=== PATIENT | male | born 1980 | race Caucasian/White ===

== ENCOUNTER 2017-12-15 09:30 | Emergency (ER) | payer SELFPAY ==
[~2017-12-15] VITALS: Ht 185.4 cm; Wt 83.1 kg
[~2017-12-15 09:30] MED LIST: ALBU1AER INH; ALBU8I INH; CITA20 PO; CLON.2 PO; IBUP800 PO; LEVA500T PO; METH10TA PO; METH40TA PO; SERO100T PO; SERO300T PO
[2017-12-15 09:39] VITALS: BP 179/86; PULSE 80; RESP 16; TEMP 98.7; O2SAT 97
[2017-12-15 09:45] VITALS: BP 179/86; PULSE 86; RESP 18; TEMP 98.7; O2SAT 99
[2017-12-15] MEDS ORDERED: SODIUM CHLORIDE 0.9% FLUSH 10 ML FLUSH IVF PRN (09:45)
--- NOTE | 2017-12-15 09:48 | PD ---
HPI Chief Complaint: Allergic/Adverse Reaction Time Seen by Provider: 09:41 Travel History International Travel<30 days: No Contact w/Intl Traveler<30days: No Traveled to known affect area: No History of Present Illness HPI Patient was at [facility] detox facility where he was being converted from methadone to Suboxone. The patient was given a test dose of 4 mg and then follow that with 8 milligrams of Subutex after which within 20 minutes the patient started to clench his teeth got confused started thrashing about. [facility] staff called 911 and got patient transferred. ems gave benzo during transfer due to fear of seizure activity, because of high agitation from patient. No known drug allergy Past medical history significant for withdrawal seizures, COPD, bipolar, smokes 1 pack a day cigarettes daily, inguinal hernia repair, PFSH Past Medical History Hx Anticoagulant Therapy: No Asthma: No Blood Disorders: No Anxiety: Yes Depression: Yes Heart Rhythm Problems: Yes Cancer: No Cardiovascular Problems: Yes High Cholesterol: No Chest Pain: No Congestive Heart Failure: No COPD: Yes Cerebrovascular Accident: Yes Diabetes: No Diminished Hearing: No Endocrine: No Genitourinary: No Hypertension: Yes Immune Disorder: Yes Inguinal Hernia: Yes (REPAIRED) Implanted Vascular Access Dvce: Yes Musculoskeletal: No Neurologic: Yes (SEIZURES) Psychiatric: Yes (BIPOLAR; ANXIETY; DEPRESSION) Reproductive: No Respiratory: Yes Immunizations Current: No Seizures: Yes (withdrawal) Sleep Apnea: No Past Surgical History Body Medical Devices: R ANKLE/LEG OPAL Other Surgery: Yes (HERNIA REPAIR; BACK SX (FELL 3 STORIES); R ANKLE SX) Social History Alcohol Use: No Tobacco Use: Yes (1 PPD) Substance Use: No Allergies-Medications (Allergen,Severity, Reaction): Coded Allergies: No Known Allergies (Verified Allergy, Unknown, 12/15/17) Reported Meds & Prescriptions Reported Meds & Active Scripts Active Active Prescriptions or Reported Medications Unobtainable Review of Systems ROS Limitations: Altered Mental Status (Patient is having intermittent changes of mentation secondary to the starting of Suboxone) Physical Exam Narrative GENERAL: SKIN: Warm and dry. HEAD: Atraumatic. Normocephalic. EYES: Pupils equal and round. No scleral icterus. No injection or drainage. ENT: No nasal bleeding or discharge. Mucous membranes pink and moist. NECK: Trachea midline. No JVD. CARDIOVASCULAR: Regular rate and rhythm. RESPIRATORY: No accessory muscle use. Clear to auscultation. Breath sounds equal bilaterally. GASTROINTESTINAL: Abdomen soft, non-tender, nondistended. MUSCULOSKELETAL: Extremities without clubbing, cyanosis, or edema. No obvious deformities. NEUROLOGICAL: Awake and alert. No obvious cranial nerve deficits. Motor grossly within normal limits. Five out of 5 muscle strength in the arms and legs. Normal speech. PSYCHIATRIC: Appropriate mood and affect; insight and judgment normal. Data Data Last Documented VS Orders Orders Complete Blood Count With Diff (12/15/17 09:41) Comprehensive Metabolic Panel (12/15/17 09:41) Urinalysis - C+S If Indicated (12/15/17 09:41) Iv Access Insert/Monitor (12/15/17:41) Ecg Monitoring (12/15/17:41) Oximetry (12/15/17 09:41) Sodium Chloride 0.9% Flush (Ns Flush) (12/15/17 09:45) Drug Screen, Random Urine (12/15/17 09:41) Alcohol (Ethanol) (12/15/17 09:41) Salicylates (Aspirin) (12/15/17 09:41) Tylenol (Acetaminophen) (12/15/17 09:41) Creatine Kinase (Cpk) (12/15/17 09:41) Clonidine (Catapres) (12/15/17 10:00) Clonidine (Catapres) (12/15/17 13:00) Ed Discharge Order (12/15/17 13:13) Labs Laboratory Tests Test 12/15/17 09:54 White Blood Count 8.4 TH/MM3 Red Blood Count 4.69 MIL/MM3 Hemoglobin 12.9 GM/DL Hematocrit 38.2 % Mean Corpuscular Volume 81.4 FL Mean Corpuscular Hemoglobin 27.4 PG Mean Corpuscular Hemoglobin Concent 33.6 % Red Cell Distribution Width 15.4 % Platelet Count 233 TH/MM3 Mean Platelet Volume 7.6 FL Neutrophils (%) (Auto) 74.5 % Lymphocytes (%) (Auto) 18.0 % Monocytes (%) (Auto) 5.6 % Eosinophils (%) (Auto) 0.9 % Basophils (%) (Auto) 1.0 % Neutrophils # (Auto) 6.3 TH/MM3 Lymphocytes # (Auto) 1.5 TH/MM3 Monocytes # (Auto) 0.5 TH/MM3 Eosinophils # (Auto) 0.1 TH/MM3 Basophils # (Auto) 0.1 TH/MM3 CBC Comment DIFF FINAL Differential Comment Urine Color LIGHT-YELLOW Urine Turbidity CLEAR Urine pH 8.0 Urine Specific [place] 1.013 Urine Protein NEG mg/dL Urine Glucose (UA) NEG mg/dL Urine Ketones NEG mg/dL Urine Occult Blood NEG Urine Nitrite NEG Urine Bilirubin NEG Urine Urobilinogen LESS THAN 2.0 MG/DL Urine Leukocyte Esterase NEG Urine RBC 3 /hpf Microscopic Urinalysis Comment CULT NOT INDICATED Blood Urea Nitrogen 16 MG/DL Creatinine 0.94 MG/DL Random Glucose 94 MG/DL Total Protein 7.4 GM/DL Albumin 3.1 GM/DL Calcium Level 9.1 MG/DL Alkaline Phosphatase 143 U/L Aspartate Amino Transf (AST/SGOT) 22 U/L Alanine Aminotransferase (ALT/SGPT) 25 U/L Total Bilirubin 0.2 MG/DL Sodium Level 140 MEQ/L Potassium Level 4.3 MEQ/L Chloride Level 106 MEQ/L Carbon Dioxide Level 25.7 MEQ/L Anion Gap 8 MEQ/L Estimat Glomerular Filtration Rate 90 ML/MIN Total Creatine Kinase 197 U/L Salicylates Level 3.3 MG/DL Urine Opiates Screen NEG Acetaminophen Level LESS THAN 2.0 MCG/ML Urine Barbiturates Screen NEG Urine Amphetamines Screen NEG Urine Benzodiazepines Screen POS Urine Cocaine Screen NEG Urine Cannabinoids Screen NEG Ethyl Alcohol Level LESS THAN 3 MG/DL MDM Medical Decision Making Medical Screen Exam Complete: Yes Emergency Medical Condition: Yes Medical Record Reviewed: Yes Differential Diagnosis Withdrawal versus pseudoseizures versus seizures versus spasms Narrative Course Patient CBC shows no leukocytosis, no anemia, normal platelet count, no left shift UA is negative for any UTI Tox screen is negative for alcohol opiates Tylenol salicylates is only positive for benzodiazepines which the patient was provided by EMS Electrolytes are all within normal limits Normal kidney liver functions Patient after 2 hours worth of observation has not had any seizure activity, he was twitching and was uncomfortable complaining of generalized pain and increase jitteriness which is secondary to his withdrawal from the switch between methadone and Suboxone. The patient was also noted to be hypertensive for which she has been receiving clonidine which is also part of his withdrawal syndrome. Patient is otherwise medically clear and can return to detox program Diagnosis Primary Impression: Medical clear Additional Impression: Opiate withdrawal Patient Instructions: General Instructions, Opioid Withdrawal (ED) Scripts Unable to Obtain Active Prescriptions or Reported Meds Disposition: 70 TRANSFER TO OTHER FACILITY (Patient will be transferred back to [facility] detox) Condition: Stable Landon De Leon MD Dec 15, 2017 09:48
[2017-12-15] MEDS ORDERED: cloNIDine HCL 0.1 MG TAB PO ONE (10:00)
[2017-12-15 10:11] LABS: AUTOMATED NEUTROPHIL # 6.3 TH/MM3 (1.8-7.7); BASOPHIL # 0.1 TH/MM3 (0-0.2); EOSINOPHIL # 0.1 TH/MM3 (0-0.4); EOSINOPHIL % 0.9 % (0.0-4.0); HEMATOCRIT 38.2 % (39.0-51.0); HEMOGLOBIN 12.9 GM/DL (13.0-17.0); LYMPHOCYTE # 1.5 TH/MM3 (1.0-4.8); MEAN CELL VOLUME 81.4 FL (80.0-100.0); MEAN CORPUSCULAR HEMOGLOBIN 27.4 PG (27.0-34.0); MEAN CORPUSCULAR HGB CONC 33.6 % (32.0-36.0); MEAN PLATELET VOLUME 7.6 FL (7.0-11.0); MONO % 5.6 % (0.0-8.0); MONOCYTE # 0.5 TH/MM3 (0-0.9); NEUT % 74.5 % (16.0-70.0); PLATELET COUNT 233 TH/MM3 (150-450); RED BLOOD COUNT 4.69 MIL/MM3 (4.50-5.90); RED CELL DISTRIBUTION WIDTH 15.4 % (11.6-17.2); WHITE BLOOD COUNT 8.4 TH/MM3 (4.0-11.0)
[2017-12-15 10:20] LABS: BILIRUBIN, URINE NEG (NEG); BLOOD, URINE NEG (NEG); GLUCOSE,URINE NEG (NEG); KETONE, URINE NEG (NEG); NITRITE,URINE NEG (NEG); URINE COLOR LIGHT-YELLOW (YELLW/STRAW); URINE LEUKOCYTE ESTERASE NEG (NEG)
[2017-12-15 10:31] LABS: ALBUMIN 3.1 GM/DL (3.4-5.0); ALT (GPT) 25 U/L (12-78); AST (GOT) 22 U/L (15-37); BICARBONATE 25.7 MEQ/L (21.0-32.0); BLOOD UREA NITROGEN 16 MG/DL (7-18); CALCIUM 9.1 MG/DL (8.5-10.1); CHLORIDE 106 MEQ/L (98-107); CREATININE 0.94 MG/DL (0.60-1.30); GLOMERULAR FILTRATION RATE 90 ML/MIN (>89); GLUCOSE,RANDOM 94 MG/DL (74-106); SODIUM (NA) 140 MEQ/L (136-145)
[2017-12-15 10:33] LABS: ALKALINE PHOSPHATASE 143 U/L (45-117); TOTAL BILIRUBIN ADULT 0.2 MG/DL (0.2-1.0); TOTAL PROTEIN 7.4 GM/DL (6.4-8.2)
[2017-12-15 10:34] LABS: ACETAMINOPHEN LESS THAN 2.0 MCG/ML (10.0-30.0)
[2017-12-15] MEDS ORDERED: hydrALAZINE HCL 20 MG/ML VIAL IV PUSH ONE (11:30)
[2017-12-15 12:59] VITALS: BP 131/69; PULSE 78; RESP 18; O2SAT 96
[2017-12-15] MEDS ORDERED: cloNIDine HCL 0.2 MG TAB PO ONE (13:00)
== END 2017-12-15 13:29 | disposition short-term general hospital (02) ==
LOC: NEPE 09:30
DX: F11.23 Opioid dependence with withdrawal (principal); I10 Essential (primary) hypertension; J44.9 Chronic obstructive pulmonary disease, unspecified; F31.9 Bipolar disorder, unspecified; F17.210 Nicotine dependence, cigarettes, uncomplicated; Z86.73 Personal history of transient ischemic attack (TIA), and cerebral infarction without residual deficits
CPT/HCPCS: 80053; 80307; 81001; 82550; 85025; 99283

== ENCOUNTER 2018-04-06 06:27 | Observation (INO) ==
[2018-04-06] MEDS ORDERED: Morphine Inj 4 MG/ML Vial IV.PUSH ONE ×2 (07:15→09:24)
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
--- NOTE | 2018-04-06 08:16 | XR ---
EXAM DATE: 04/06/2018 7:15 AM EDT AGE/SEX: 37 years / Male INDICATIONS: Pain in lower back, predominately on the left, from fall. CLINICAL DATA: This is the patient's initial encounter. Patient reports that signs and symptoms have been present for 1 day and indicates a pain score of 5/10. MEDICAL/SURGICAL HISTORY: . Degenerative disk disease. None. COMPARISON: No prior exams available for comparison. FINDINGS: 5 views of the lumbar spine demonstrate 5 nonrib-bearing lumbar vertebral bodies. No fracture or comp ression deformity is present. There is no anterolisthesis or retrolisthesis. Endplate osteophytes are visualized anteriorly at L3-L4. There is mild facet hypertrophy at L5-S1. Mild decreased disc height is present at L5-S1 as well. Mild sclerosis is present at the endplates anteriorly at all levels. Th e visualized pelvic bones demonstrate no acute finding. No soft tissue abnormality is identified. The re is questionable fusion of a portion of the left sacroiliac joint. CONCLUSION: 1. No acute lumbar spine abnormality is identified. 2. There are subtle changes identified which can be seen as early findings of ankylosing spondylitis . Suggest correlating with the clinical history and appropriate laboratory values. Electronically signed by: Mookie Xiao MD 04/06/2018 8:14 AM EDT
--- NOTE | 2018-04-06 08:18 | XR ---
EXAM DATE: 04/06/2018 7:15 AM EDT AGE/SEX: 37 years / Male INDICATIONS: Pain in distal right wrist from fall. CLINICAL DATA: This is the patient's initial encounter. Patient reports that signs and symptoms have been present for 1 day and indicates a pain score of 10/10. MEDICAL/SURGICAL HISTORY: None. None. COMPARISON: No prior exams available for comparison. FINDINGS: 3 views of the right wrist demonstrate a comminuted fracture of the distal radial metaphysis with fra cture line extension into the radiocarpal joint. There is a dorsal angulation of the distal fragment. There is a minimally displaced ulnar styloid fracture. Carpal bones appear intact. There is soft tis vicky swelling around the wrist. No radiopaque foreign body is identified. CONCLUSION: 1. Comminuted and dorsally angulated fracture of the distal right radial metaphysis. Fracture line e xtends into the radiocarpal joint. 2. Minimally displaced ulnar styloid fracture. Electronically signed by: Mookie Xiao MD 04/06/2018 8:16 AM EDT
--- NOTE | 2018-04-06 08:19 | XR ---
EXAM DATE: 04/06/2018 7:49 AM EDT AGE/SEX: 37 years / Male INDICATIONS: Cough. CLINICAL DATA: This is the patient's initial encounter. Patient reports that signs and symptoms have been present for 1 day and indicates a pain score of 0/10. MEDICAL/SURGICAL HISTORY: None. None. [place] [facility] [place] . FINDINGS: Portable AP view of the chest demonstrates a normal-sized cardiac silhouette. No effusion, consolidat ion, or pneumothorax is identified. The bones and soft tissues demonstrate no acute finding. CONCLUSION: No acute cardiopulmonary abnormality is identified. Electronically signed by: Mookie Xiao MD 04/06/2018 8:17 AM EDT
--- NOTE | 2018-04-06 08:31 | CT ---
EXAM DATE: 04/06/2018 7:30 AM EDT AGE/SEX: 37 years / Male INDICATIONS: Trauma, fall today. CLINICAL DATA: This is the patient's initial encounter. Patient reports that signs and symptoms have been present for 1 day and indicates a pain score of 6/10. MEDICAL/SURGICAL HISTORY: Hypertension. None. RADIATION DOSE: 56.35 CTDI (mGy) [place] [facility]. . TECHNIQUE: CT of the head without contrast. Using automated exposure control and adjustment of the mA and/or kV according to patient size, radiation dose was kept as low as reasonably achievable to ob tain optimal diagnostic quality images. DICOM format image data is available electronically for revi ew and comparison. FINDINGS: Cerebrum: The ventricles are normal. No midline shift, mass lesion, hemorrhage or acute infarction. No extraaxial fluid collections are seen. Posterior Fossa: The cerebellum and brainstem demonstrate no acute abnormality. The 4th ventricle is midline. The cerebellopontine angle is within normal limits. Extracranial: There is mild mucoperiosteal thickening within the ethmoid sinus. Skull: The calvaria is intact. No skull fracture. CONCLUSION: No acute abnormality is identified. . Electronically signed by: Mookie Xiao MD 04/06/2018 8:30 AM EDT
--- NOTE | 2018-04-06 08:36 | CT ---
EXAM DATE: 04/06/2018 7:30 AM EDT AGE/SEX: 37 years / Male INDICATIONS: Trauma, fall today. CLINICAL DATA: This is the patient's initial encounter. Patient reports that signs and symptoms have been present for 1 day and indicates a pain score of 7/10. MEDICAL/SURGICAL HISTORY: Hypertension. None. RADIATION DOSE: 21.43 CTDI (mGy) COMPARISON: No prior exams available for comparison. TECHNIQUE: Contiguous axial images were obtained using helical multirow detector technique. The vol umetric data was post-processed with multiplanar reconstruction in oblique axial, sagittal, and coron al planes. Using automated exposure control and adjustment of the mA and/or kV according to patient s ize, radiation dose was kept as low as reasonably achievable to obtain optimal diagnostic quality pedro ges. DICOM format image data is available electronically for review and comparison. FINDINGS: There is normal sagittal spinal alignment without anterolisthesis or retrolisthesis. No fracture or d islocation is identified. The atlantoaxial relationship is within normal limits and there is no preve rtebral soft tissue swelling. There are anterior osteophytes or syndesmophytes at C3-C4 and C4-C5. No disc herniation is seen. There is some type of arthrosis at the joint space between the medial ribs and transverse processes at T1. The facet joints appear fused on the right at C7-T1. There is facet a rthrosis on the left at C6-C7. The visualized surrounding structures demonstrate no acute abnormality. CONCLUSION: No acute cervical spine abnormality is identified. There are degenerative changes, as above. Electronically signed by: Mookie Xiao MD 04/06/2018 8:35 AM EDT
[2018-04-06] MEDS ORDERED: Ketorolac Inj 30 MG/ML (IVP) Vial IV.PUSH ONE (08:38)
[2018-04-06] MEDS: Sod Chloride 0.9% Inj 1,000 ML IV.CONT SCH ×2 (09:50→22:51)
[2018-04-06 10:16] LABS: Baso # (Auto) 0.1 th/mm3 (0.0-0.2); Baso % (Auto) 0.9 % (0.0-2.0); Eos # (Auto) 0.4 th/mm3 (0.0-0.4); Hematocrit 37.4 % (39.0-51.0); Hemoglobin 12.9 gm/dL (13.0-17.0); Lymph # (Auto) 2.8 th/mm3 (1.0-4.8); Lymph % (Auto) 33.2 % (9.0-44.0); Mean Corpuscular HGB Conc 34.5 % (32.0-36.0); Mean Corpuscular Hemoglobin 28.4 pg (27.0-34.0); Mean Corpuscular Volume 82.5 fL (80.0-100.0); Mean Platelet Volume 7.9 fL (7.0-11.0); Mono # (Auto) 0.8 th/mm3 (0.0-0.9); Neut # (Auto) 4.4 th/mm3 (1.8-7.7); Neut % (Auto) 51.9 % (16.0-70.0); Platelet Count 256 th/mm3 (150-450); Red Blood Count 4.54 mil/mm3 (4.50-5.90); Red Cell Distribution Width 14.8 % (11.6-17.2); White Blood Count 8.4 th/mm3 (4.0-11.0)
[2018-04-06] MEDS ORDERED: ceFAZolin 2 GM Premix Inj 2 GM/50 ML PIGGYBACK IV.SIG ONE (10:24)
[2018-04-06 10:25] LABS: INR 0.9 Ratio; Prothrombin Time 9.6 sec (9.8-11.6)
[2018-04-06] MEDS ORDERED: Lidocaine PF 2% Inj 10 ML Ampul ONE (10:26)
[2018-04-06] MEDS ORDERED: Bupivacaine PF 0.5% Inj 30 ML Vial ONE (10:26)
[2018-04-06 10:31] LABS: Anion Gap 8 meq/L (5-15); Blood Urea Nitrogen 14 mg/dL (7-18); Calcium 8.6 mg/dL (8.5-10.1); Carbon Dioxide 29.1 meq/L (21.0-32.0); Chloride 105 meq/L (98-107); Glomerular Filtration Rate Greater Than 89 mL/min (>89); Glucose,Random 117 mg/dL (74-106); Sodium 142 meq/L (136-145)
[2018-04-06] MEDS ORDERED: Neomycin/Polymyxin G.U. Irrigant 1 ML Ampul ONE (10:48)
[2018-04-06] MEDS ORDERED: Ketamine Inj 50 MG/5 ML Syringe IV.PUSH ONE (11:48)
[2018-04-06] MEDS ORDERED: Dexmedetomidine Inj 200 MCG/2 ML Vial ONE (11:48)
[2018-04-06] MEDS ORDERED: Famotidine PF Inj 20 MG/2 ML Vial ONE ×2 (11:49→11:52)
--- NOTE | 2018-04-06 11:49 | ECG ---
Date Performed: 04/06/2018 Time Performed: 10:16:45 PTAGE: 37 years EKG: Sinus rhythm NORMAL ECG No significant change from prior electrocardiogram. PREVIOUS TRACING : 09/08/2016 14.21 DOCTOR: Lopez Benson Interpretating Date/Time 04/06/2018 11:48:11
[2018-04-06] MEDS ORDERED: Lidocaine PF 1% Inj 5 ML Syringe OTHER ONE (12:00)
[2018-04-06] MEDS ORDERED: Succinylcholine Inj 100 MG/5 ML Syringe IV.PUSH ONE (12:00)
--- NOTE | 2018-04-06 14:41 | XR ---
EXAM DATE: 04/06/2018 12:00 AM EDT AGE/SEX: 37 years / Male INDICATIONS: Surgical repair, radial plate placement. CLINICAL DATA: This is the patient's initial encounter. Patient reports that signs and symptoms have been present for 1 day and indicates a pain score of Nonresponsive. MEDICAL/SURGICAL HISTORY: None. None. COMPARISON: No prior exams available for comparison. FINDINGS: Intraoperative examination demonstrates plating of the patient's distal radial fracture. Alignment po st plating is excellent. CONCLUSION: Excellent alignment of the distal radial fracture post plating. Electronically signed by: Jewel Olivier MD 04/06/2018 2:39 PM EDT
--- NOTE | 2018-04-06 15:18 | P.OP ---
- Preoperative Diagnosis (1) Other intraarticular fracture of lower end of right radius, initial encounter for closed fracture (2) Carpal tunnel syndrome, right - Postoperative Diagnosis (1) Carpal tunnel syndrome, right (2) Other intraarticular fracture of lower end of right radius, initial encounter for closed fracture Date of procedure: 04/06/18 Procedure: open reduction and internal fixation distal radius with volar plate and screws right wrist open right carpal tunnel release Anesthesia: GETA Surgeon: Ananth Yin MD Estimated blood loss (mL): 15 Tourniquet time (min): 120 Operation and Findings: comminuted metaphyseal fracture with intrarticular extension distal radius right wrist skeletal dynamics geminus standard volar 4 holed plate and screws
[2018-04-06] MEDS ORDERED: fentaNYL Citrate Inj 100 MCG/2 ML Ampul ONE (15:28)
[2018-04-06] MEDS ORDERED: Acetaminophen 325 MG Tablet PO PRN ×2 (16:46→16:50)
[2018-04-06] MEDS ORDERED: Bisacodyl 10 MG Supp RECTAL PRN (16:46)
[2018-04-06] MEDS ORDERED: Temazepam 15 MG Capsule PO PRN (16:46)
[2018-04-06] MEDS ORDERED: Naloxone Inj 0.4 MG/ML Vial IV.PUSH PRN (16:50)
[2018-04-06] MEDS ORDERED: Morphine Sulfate Inj 2 MG/ML Vial IV.PUSH PRN (16:50)
[2018-04-06] MEDS ORDERED: Morphine Inj 4 MG/ML Vial IV.PUSH PRN ×2 (16:50)
--- NOTE | 2018-04-06 17:01 | P.CONIM ---
History of Present Illness Service: [facility] Consult date: 04/06/18 Requesting Physician: Ananth Yin Reason for Consult: MEDICAL MANAGEMENT Primary Care Provider: Clark Santoyo Provider: Clark Eagle Chief Complaint: Fall out of truck History of Present Illness: Patient is a 37-year-old male who presented to the emergency department today with right arm pain status post fall. Patient states he was sitting in the backseat of a parked pickup truck that had [id number] doors. The front door was open but the back door was closed. The patient was leaning on and "flew open" causing him to fall out of the truck. He landed on his right outstretched hand and reports that he hit the right side of his head. He does not know if he lost consciousness but complains of headache, neck pain, low back pain, and pain deformity to his right wrist. Not on any anticoagulants or any antiplatelets tetanus was up-to-date Has chronic issues with ADD, bipolar, anxiety, posttraumatic stress disorder and hypertension and chronic pain with chronic methadone and neuropathy Family history is significant for diabetes and hypertension in both parents Review of Systems All other systems reviewed negative except as stated in HPI PMFSH - History History Provided By: Patient - Medical History Medical History: Medical History (Last Reviewed 04/06/18 @ 16:57 by Tyrone Wagoner DO) ADD (attention deficit disorder) Anxiety Back problem Bipolar affect, depressed DDD (degenerative disc disease) HTN (hypertension) PTSD (post-traumatic stress disorder) Seizure - Surgical History Surgical History: Surgical History (Last Reviewed 04/06/18 @ 16:57 by Tyrone Wagoner DO) S/P hernia surgery - Family History Family History: Family History (Last Reviewed 04/06/18 @ 16:57 by Tyrone Wagoner DO) Other Family history of diabetes mellitus Family history of hypertension - Social History I have reviewed the patient's Social History: Yes - Tobacco History Second Hand Smoke Exposure: Yes Tobacco Use In Past 30 Days: Yes Smoking Status: Current every day smoker Tobacco Type: Cigarettes - Alcohol History How Often Do You Have a Drink Containing Alcohol: Never - Substance Use History Substance History: No History of Abuse - Travel History History of Recent Travel: No Recent Travel in the [place] Within the Last 8 Weeks: No Recent Travel Out of the Country Within the Last 8 Weeks: No - Immunization History Tetanus Immunization: <5 Years Hx Influenza Vaccine This Season: Yes Medications and Allergies Active Medications: Active Medications Acetaminophen (Tylenol) 650 mg PO Q4H PRN PRN Reason: Temp > 100.4 Acetaminophen (Tylenol) 650 mg PO Q6HR PRN PRN Reason: PAIN SCALE 1 TO 2 Al Hydroxide/Mg Hydroxide (Milk Of Magnesia Liq) 30 ml PO Q12H PRN PRN Reason: Mild Constipation Bisacodyl (Dulcolax Supp) 10 mg RECTAL DAILY PRN PRN Reason: SEVERE CONSITIPATION Clonidine HCl (Catapres) 0.1 mg PO Q6H PRN PRN Reason: HYPERTENSION Gabapentin (Neurontin) 300 mg PO TID [facility] Hydroxyzine Pamoate (Vistaril) 50 mg PO BID [facility] Sodium Chloride (Ns Inj) 1,000 mls @ 100 mls/hr IV.CONT .Q10H [facility] Last Admin: 04/06/18 09:50 Dose: 100 mls/hr Lactulose (Lactulose Liq) 30 ml PO DAILY PRN PRN Reason: SEVERE CONSITIPATION Lisinopril (Prinivil) 10 mg PO BID [facility] Miscellaneous Information (Misc Nursing Information) 1 each OTHER UNSCH PRN PRN Reason: SEE LABEL COMMENTS Stop: 04/07/18 15:20 Morphine Sulfate (Morphine Inj) 2 mg IV.PUSH Q3H PRN PRN Reason: PAIN 3-5; IF UABLE TO TAKE PO Morphine Sulfate (Morphine Inj) 4 mg IV.PUSH Q3H PRN PRN Reason: PAIN 6-10;IF UNABLE TO TAKE PO Morphine Sulfate (Morphine Inj) 4 mg IV.PUSH Q3H PRN PRN Reason: BREAKTHROUGH PAIN Naloxone HCl (Narcan Inj) 0.4 mg IV.PUSH UNSCH PRN PRN Reason: SEE LABEL COMMENTS Nicotine (Habitrol 14 Mg Patch.24 Hr) 1 patch T-DERMAL DAILY [facility] Non-Formulary Medication (Methadone) 140 mg PO DAILY [facility] Ondansetron HCl (Zofran Inj) 4 mg IV.PUSH Q6H PRN PRN Reason: NAUSEA OR VOMITING Oxycodone/Acetaminophen (Percocet 5/325 Mg) 1 tab PO Q6H PRN PRN Reason: PAIN SCALE 3 TO 5 Oxycodone/Acetaminophen (Percocet 10/325 Mg) 1 tab PO Q6H PRN PRN Reason: PAIN SCALE 6 TO 10 Patch Removal (Remove Old Patch) 1 each T-DERMAL DAILY [facility] Senna/Docusate Sodium (Carla-Colace) 1 tab PO BID [facility] Sennosides (Senokot) 17.2 mg PO Q12H PRN PRN Reason: Moderate Constipation Temazepam (Restoril) 15 mg PO HS PRN PRN Reason: INSOMNIA Allergies Allergy/AdvReac Type Severity Reaction Status Date / Time bee venom protein (honey bee) Allergy Anaphylaxis Verified 04/06/18 06:44 [Bee sting] No Known Allergies Allergy Unknown Weakness Uncoded 04/06/18 06:44 Home Medications Medication Instructions Recorded Confirmed Type gabapentin 300 mg PO TID 04/06/18 04/06/18 History hydroxyzine pamoate [Vistaril] 50 mg PO BID 04/06/18 04/06/18 History lithium aspartate 04/06/18 04/06/18 History methadone 140 mg PO DAILY 04/06/18 04/06/18 History Exam Vital signs: Vital Signs 04/06/18 06:35 04/06/18 07:22 04/06/18 11:09 Temperature 98.7 F Pulse Rate 89 83 71 Respiratory Rate 20 12 12 Blood Pressure 194/92 H 166/105 H 178/100 H Pulse Oximetry 97 97 04/06/18 15:20 04/06/18 15:30 04/06/18 15:45 Temperature 98.5 F Pulse Rate 76 71 76 Respiratory Rate 12 16 12 Blood Pressure 143/81 H 139/66 137/71 Pulse Oximetry 94 L 99 97 04/06/18 16:00 04/06/18 16:15 Temperature Pulse Rate 72 74 Respiratory Rate 12 12 Blood Pressure 137/74 139/74 Pulse Oximetry 97 97 Intake & Output 04/05/18 04/06/18 04/06/18 18:59 06:59 18:59 Intake Total 1350 / 1350 Output Total Balance 1335 / 1335 Weight 86.183 kg Intake: IV 50 / 50 Ancef 2 GM Premix Inj 2 gm In 50 / 50 50 ml @ 0 mls/hr IV.SIG .STK- MED ONE Rx#:[id number] Anesthesia Amount 1300 / 1300 Output: Estimated Blood Loss Narrative: GENERAL: Awake alert arousable talkative and cooperative oriented x3 SKIN: Warm and dry. HEAD: Normocephalic. Atraumatic EYES: No scleral icterus. No injection or drainage. NECK: Supple, trachea midline. No JVD or lymphadenopathy. CARDIOVASCULAR: Regular rate and rhythm without murmurs, gallops, or rubs. S1- S2 no S3 or S4 RESPIRATORY: Breath sounds equal bilaterally. No accessory muscle use. GASTROINTESTINAL: Abdomen soft, non-tender, nondistended. MUSCULOSKELETAL: No cyanosis, or edema. Right hand is dressed and in a sling BACK: Nontender without obvious deformity. No CVA tenderness. Insight and judgment is limited secondary to medications Mood and behavior is somewhat appropriate Results - Labs CBC & Chem 7: 04/06/18 07:00 04/06/18 07:00 Labs: Laboratory Results - last 24 hr 04/06/18 04/06/18 04/06/18 07:00 07:00 07:00 WBC 8.4 RBC 4.54 Hgb 12.9 L Hct 37.4 L MCV 82.5 MCH 28.4 MCHC 34.5 RDW 14.8 Plt Count 256 MPV 7.9 Neut % (Auto) 51.9 Lymph % (Auto) 33.2 Stokes % (Auto) 9.0 H Eos % (Auto) 5.0 H Baso % (Auto) 0.9 Neut # (Auto) 4.4 Lymph # (Auto) 2.8 Stokes # (Auto) 0.8 Eos # (Auto) 0.4 Baso # (Auto) 0.1 WBC Differential . Differential Comment Auto diff final PT 9.6 L INR 0.9 Sodium 142 Potassium 4.0 Chloride 105 Carbon Dioxide 29.1 Anion Gap 8 BUN 14 Creatinine 0.91 Estimated GFR Greater than 89 Random Glucose 117 H Calcium 8.6 Blood Type Blood Type Recheck Antibody Screen 04/06/18 07:00 WBC RBC Hgb Hct MCV MCH MCHC RDW Plt Count MPV Neut % (Auto) Lymph % (Auto) Stokes % (Auto) Eos % (Auto) Baso % (Auto) Neut # (Auto) Lymph # (Auto) Stokes # (Auto) Eos # (Auto) Baso # (Auto) WBC Differential Differential Comment PT INR Sodium Potassium Chloride Carbon Dioxide Anion Gap BUN Creatinine Estimated GFR Random Glucose Calcium Blood Type A Positive Blood Type Recheck Required Antibody Screen Negative - Imaging Impressions Wrist X-Ray 04/06/18 00:00 CONCLUSION: Excellent alignment of the distal radial fracture post plating. Cervical Spine CT 04/06/18 07:15 CONCLUSION: No acute cervical spine abnormality is identified. There are degenerative changes, as above. Head CT 04/06/18 07:15 CONCLUSION: No acute abnormality is identified. . Lumbar Spine X-Ray 04/06/18 07:15 CONCLUSION: 1. No acute lumbar spine abnormality is identified. 2. There are subtle changes identified which can be seen as early findings of ankylosing spondylitis. Suggest correlating with the clinical history and appropriate laboratory values. Wrist X-Ray 04/06/18 07:15 CONCLUSION: 1. Comminuted and dorsally angulated fracture of the distal right radial metaphysis. Fracture line extends into the radiocarpal joint. 2. Minimally displaced ulnar styloid fracture. Chest X-Ray 04/06/18 07:49 CONCLUSION: No acute cardiopulmonary abnormality is identified. Assessment and Plan - Plan Status post fall with fracture to the right radius status post repair by hand surgery -Pain control prescription is already been written by hand surgery Chronic pain on chronic methadone for which he goes to the methadone clinic daily 140 mg p.o. daily Tobacco abuse recommend cessation ADD/anxiety/bipolar and PTSD we will resume his chronic home medications hold the lithium since we do not know the dose Hypertension we will start on lisinopril Seizure disorder currently stable Chronic back pain on chronic methadone DDD on chronic pain medications with methadone Continue on SCDs and JAGDEEP hose for DVT prophylaxis Hopefully discharge later today when patient can get a ride History of carpal tunnel syndrome on the right Radius and ulnar distal fracture of the right hand wrist status post repair Follow-up with hand surgery as scheduled Code Status: Full code Discussed Condition With: RN and patient Discharge Planning: Discharge later today when patient can find a ride to be discharged home
--- NOTE | 2018-04-06 17:09 | P.DS ---
Primary care physician: No Primary Care Physician Attending physician on discharge: Ananth Yin Anticipated date of discharge: 04/06/18 Brief History from admission: Patient is a 37-year-old male who presented to the emergency department today with right arm pain status post fall. Patient states he was sitting in the backseat of a parked pickup truck that had [id number] doors. The front door was open but the back door was closed. The patient was leaning on and "flew open" causing him to fall out of the truck. He landed on his right outstretched hand and reports that he hit the right side of his head. He does not know if he lost consciousness but complains of headache, neck pain, low back pain, and pain deformity to his right wrist. Not on any anticoagulants or any antiplatelets tetanus was up-to-date Has chronic issues with ADD, bipolar, anxiety, posttraumatic stress disorder and hypertension and chronic pain with chronic methadone and neuropathy Family history is significant for diabetes and hypertension in both parents Patient update on day of discharge: Discharge to home after wakes up from surgery and can find a right DS: Diagnosis - Discharge Diagnosis (1) ADD (attention deficit disorder) Status: Chronic (2) PTSD (post-traumatic stress disorder) Status: Chronic (3) Chronic pain Status: Chronic (4) Tobacco abuse Status: Chronic (5) Radius and ulna distal fracture Status: Acute (6) Other intraarticular fracture of lower end of right radius, initial encounter for closed fracture Status: Acute (7) Carpal tunnel syndrome, right Status: Acute DS: Medications - Discharge Medications Prescriptions: gabapentin 300 mg PO TID #90 cap lisinopril 10 mg PO BID #60 tab nicotine 1 patch TRANSDERMAL DAILY #30 ea sennosides-docusate sodium [Senna Plus] 2 tab PO BID #120 tab DS: Summary Hospital Course: Patient is a 37-year-old male who presented to the emergency department today with right arm pain status post fall. Patient states he was sitting in the backseat of a parked pickup truck that had [id number] doors. The front door was open but the back door was closed. The patient was leaning on and "flew open" causing him to fall out of the truck. He landed on his right outstretched hand and reports that he hit the right side of his head. He does not know if he lost consciousness but complains of headache, neck pain, low back pain, and pain deformity to his right wrist. Not on any anticoagulants or any antiplatelets tetanus was up-to-date Has chronic issues with ADD, bipolar, anxiety, posttraumatic stress disorder and hypertension and chronic pain with chronic methadone and neuropathy Family history is significant for diabetes and hypertension in both parents Can be discharged later today when patient can get a ride and is more alert - Time Spent with Patient Total time spent providing and/or coordinating discharge services: Greater than 30 minutes - Quality: VTE Deep Vein Thrombosis/Pulmonary Embolism Present on Admission: No Exam Vital signs: Vital Signs 04/06/18 06:35 04/06/18 07:22 04/06/18 11:09 Temperature 98.7 F Pulse Rate 89 83 71 Respiratory Rate 20 12 12 Blood Pressure 194/92 H 166/105 H 178/100 H Pulse Oximetry 97 97 04/06/18 15:20 04/06/18 15:30 04/06/18 15:45 Temperature 98.5 F Pulse Rate 76 71 76 Respiratory Rate 12 16 12 Blood Pressure 143/81 H 139/66 137/71 Pulse Oximetry 94 L 99 97 04/06/18 16:00 04/06/18 16:15 Temperature Pulse Rate 72 74 Respiratory Rate 12 12 Blood Pressure 137/74 139/74 Pulse Oximetry 97 97 Intake & Output 04/05/18 04/06/18 04/06/18 18:59 06:59 18:59 Intake Total 1350 / 1350 Output Total Balance 1335 / 1335 Weight 86.183 kg 86.183 kg Intake: IV 50 / 50 Ancef 2 GM Premix Inj 2 gm In 50 / 50 50 ml @ 0 mls/hr IV.SIG .STK- [facility] Rx#:[id number] Anesthesia Amount 1300 / 1300 Output: Estimated Blood Loss Other: Weight On Admission 86.183 kg Narrative: GENERAL: Awake alert arousable talkative and cooperative oriented x3 SKIN: Warm and dry. HEAD: Normocephalic. Atraumatic EYES: No scleral icterus. No injection or drainage. NECK: Supple, trachea midline. No JVD or lymphadenopathy. CARDIOVASCULAR: Regular rate and rhythm without murmurs, gallops, or rubs. S1- S2 no S3 or S4 RESPIRATORY: Breath sounds equal bilaterally. No accessory muscle use. GASTROINTESTINAL: Abdomen soft, non-tender, nondistended. MUSCULOSKELETAL: No cyanosis, or edema. Right hand is dressed and in a sling BACK: Nontender without obvious deformity. No CVA tenderness. Insight and judgment is limited secondary to medications Mood and behavior is somewhat appropriate Results Procedures completed during hospitalization: Attending Provider: Ananth Yin Date: 04/06/18 15:14 Initialization Date: 04/06/18 15:14 - Preoperative Diagnosis (1) Other intraarticular fracture of lower end of right radius, initial encounter for closed fracture (2) Carpal tunnel syndrome, right - Postoperative Diagnosis (1) Carpal tunnel syndrome, right (2) Other intraarticular fracture of lower end of right radius, initial encounter for closed fracture Date of procedure: 04/06/18 Procedure: open reduction and internal fixation distal radius with volar plate and screws right wrist open right carpal tunnel release Anesthesia: GETA Surgeon: Ananth Yin MD Estimated blood loss (mL): 15 Tourniquet time (min): 120 Operation and Findings: comminuted metaphyseal fracture with intrarticular extension distal radius right wrist skeletal dynamics geminus standard volar 4 holed plate and screws Completed studies during hospitalization: Laboratory Results WBC 8.4 th/mm3 (4.0-11.0) 04/06/18 07:00 RBC 4.54 mil/mm3 (4.50-5.90) 04/06/18 07:00 Hgb 12.9 gm/dL (13.0-17.0) L 04/06/18 07:00 Hct 37.4 % (39.0-51.0) L 04/06/18 07:00 MCV 82.5 fL (80.0-100.0) 04/06/18 07:00 MCH 28.4 pg (27.0-34.0) 04/06/18 07:00 MCHC 34.5 % (32.0-36.0) 04/06/18 07:00 RDW 14.8 % (11.6-17.2) 04/06/18 07:00 Plt Count 256 th/mm3 (150-450) 04/06/18 07:00 MPV 7.9 fL (7.0-11.0) 04/06/18 07:00 Neut % (Auto) 51.9 % (16.0-70.0) 04/06/18 07:00 Lymph % (Auto) 33.2 % (9.0-44.0) 04/06/18 07:00 Lares % (Auto) 9.0 % (0.0-8.0) H 04/06/18 07:00 Eos % (Auto) 5.0 % (0.0-4.0) H 04/06/18 07:00 Baso % (Auto) 0.9 % (0.0-2.0) 04/06/18 07:00 Neut # (Auto) 4.4 th/mm3 (1.8-7.7) 04/06/18 07:00 Lymph # (Auto) 2.8 th/mm3 (1.0-4.8) 04/06/18 07:00 Lares # (Auto) 0.8 th/mm3 (0.0-0.9) 04/06/18 07:00 Eos # (Auto) 0.4 th/mm3 (0.0-0.4) 04/06/18 07:00 Baso # (Auto) 0.1 th/mm3 (0.0-0.2) 04/06/18 07:00 WBC Differential . 04/06/18 07:00 Differential Comment Auto diff final 04/06/18 07:00 PT 9.6 sec (9.8-11.6) L 04/06/18 07:00 INR 0.9 Ratio 04/06/18 07:00 Sodium 142 meq/L (136-145) 04/06/18 07:00 Potassium 4.0 meq/L (3.5-5.1) 04/06/18 07:00 Chloride 105 meq/L (98-107) 04/06/18 07:00 Carbon Dioxide 29.1 meq/L (21.0-32.0) 04/06/18 07:00 Anion Gap 8 meq/L (5-15) 04/06/18 07:00 BUN 14 mg/dL (7-18) 04/06/18 07:00 Creatinine 0.91 mg/dL (0.60-1.30) 04/06/18 07:00 Estimated GFR Greater than 89 mL/min (>89) 04/06/18 07:00 Random Glucose 117 mg/dL (74-106) H 04/06/18 07:00 Calcium 8.6 mg/dL (8.5-10.1) 04/06/18 07:00 Blood Type A Positive 04/06/18 07:00 Blood Type Recheck Required 04/06/18 07:00 Antibody Screen Negative 04/06/18 07:[address] 04/06/18 07:15 CONCLUSION: No acute cervical spine abnormality is identified. There are degenerative changes, as above. Head CT 04/06/18 07:15 CONCLUSION: No acute abnormality is identified. . Lumbar Spine X-Ray 04/06/18 07:15 CONCLUSION: 1. No acute lumbar spine abnormality is identified. 2. There are subtle changes identified which can be seen as early findings of ankylosing spondylitis. Suggest correlating with the clinical history and appropriate laboratory values. Wrist X-Ray 04/06/18 07:15 CONCLUSION: 1. Comminuted and dorsally angulated fracture of the distal right radial metaphysis. Fracture line extends into the radiocarpal joint. 2. Minimally displaced ulnar styloid fracture. Chest X-Ray 04/06/18 07:49 CONCLUSION: No acute cardiopulmonary abnormality is identified. Labs on day of discharge: Labs from last 24 hours 04/06/18 04/06/18 04/06/18 07:00 07:00 07:00 WBC RBC Hgb Hct MCV MCH MCHC RDW Plt Count MPV Neut % (Auto) Lymph % (Auto) Lares % (Auto) Eos % (Auto) Baso % (Auto) Neut # (Auto) Lymph # (Auto) Lares # (Auto) Eos # (Auto) Baso # (Auto) WBC Differential Differential Comment PT 9.6 L INR 0.9 Sodium 142 Potassium 4.0 Chloride 105 Carbon Dioxide 29.1 Anion Gap 8 BUN 14 Creatinine 0.91 Estimated GFR Greater than 89 Random Glucose 117 H Calcium 8.6 Blood Type A Positive Blood Type Recheck Required Antibody Screen Negative 04/06/18 07:00 WBC 8.4 RBC 4.54 Hgb 12.9 L Hct 37.4 L MCV 82.5 MCH 28.4 MCHC 34.5 RDW 14.8 Plt Count 256 MPV 7.9 Neut % (Auto) 51.9 Lymph % (Auto) 33.2 Lares % (Auto) 9.0 H Eos % (Auto) 5.0 H Baso % (Auto) 0.9 Neut # (Auto) 4.4 Lymph # (Auto) 2.8 Lares # (Auto) 0.8 Eos # (Auto) 0.4 Baso # (Auto) 0.1 WBC Differential . Differential Comment Auto diff final PT INR Sodium Potassium Chloride Carbon Dioxide Anion Gap BUN Creatinine Estimated GFR Random Glucose Calcium Blood Type Blood Type Recheck Antibody Screen - Impressions ITS Impressions Cervical Spine CT 04/06/18 07:15 CONCLUSION: No acute cervical spine abnormality is identified. There are degenerative changes, as above. Head CT 04/06/18 07:15 CONCLUSION: No acute abnormality is identified. . Lumbar Spine X-Ray 04/06/18 07:15 CONCLUSION: 1. No acute lumbar spine abnormality is identified. 2. There are subtle changes identified which can be seen as early findings of ankylosing spondylitis. Suggest correlating with the clinical history and appropriate laboratory values. Wrist X-Ray 04/06/18 07:15 CONCLUSION: 1. Comminuted and dorsally angulated fracture of the distal right radial metaphysis. Fracture line extends into the radiocarpal joint. 2. Minimally displaced ulnar styloid fracture. Chest X-Ray 04/06/18 07:49 CONCLUSION: No acute cardiopulmonary abnormality is identified. Discharge Plan - Discharge Disposition Patient Disposition: 01 Discharge Home - Discharge Order Discharge Orders: Discharge Order (Routine); Ordered 04/06/18 Ordered By: Tyrone Wagoner - Discharge Details Anticipated Discharge Date: 04/06/18 Discharge Comment: Discharge to home when has a ride - Physicians Team Primary Care Provider: Primary Care Physici,No Attending Provider: Ananth Yin Other Providers: Ananth Yin MD ; Gretchen Holt MD
[2018-04-06] MEDS: Gabapentin 300 MG Capsule PO SCH (17:30)
--- NOTE | 2018-04-06 18:47 | MP ---
cc: Ananth Yin MD DATE OF OPERATION: 04/06/2018 PREOPERATIVE DIAGNOSIS: Comminuted displaced metaphyseal fracture with intra-articular extension distal radius right wrist and right carpal tunnel syndrome. POSTOPERATIVE DIAGNOSIS: Comminuted displacement of facial fracture with intra-articular extensions distal radius right wrist and right carpal tunnel syndrome. PROCEDURE: Open reduction internal fixation of distal radius with volar plate and screws, right wrist and open right carpal tunnel release. SURGEON: Ananth Yin MD ANESTHESIA: General. ESTIMATED BLOOD LOSS: 15 mL. TOURNIQUET TIME: 120 minutes at 250 mmHg. IMPLANTS USED: Skeletal [employer] MELODY plate, 4-hole standard plate, one nonlocking, fully threaded distal screw, 6 smooth locking pegs and four 3.5 mm screws proximally. INDICATIONS: The patient is a 37-year-old male who presented to the ED with complaints of fall and injuring his right wrist. The patient states he was sitting in the back seat of a parked pickup truck with a side by side door, when the front door was open, the back door was closed. The patient was leaning on it and had a fall about 4 feet, injuring his right wrist. The patient complained of pain, deformity of the right wrist and he also complained of numbness involving the right hand. On examination, he had deformity of the distal radius with tenderness and numbness in the median nerve distribution. X-ray showed comminuted metaphyseal fracture with displacement angulation and intra-articular extension into the radiocarpal joint. The patient was consented for open reduction internal fixation of distal radius and open right carpal tunnel release. He was explained the risks and benefits of the procedure. PROCEDURE IN DETAIL: The patient was brought to the operating room under general anesthesia. The right upper extremity was sterilely prepped and draped. Incision site was marked over the flexor carpi radialis tendon and extending across the wrist in a zigzag fashion measuring about 7-8 cm. Another incision site was marked over the carpal tunnel region measuring 3-4 cm, corresponding to the radial margin of the ring finger. After limb exsanguination, tourniquet was inflated to 250 mmHg. Incision was then made over the proposed incisions. Soft tissue dissection was carried out. The sheath of the flexor carpi radialis was incised. The flexor carpi radialis tendon was then retracted medially, exposing the volar fascia, which was adhesed along the base of the flexor carpi radialis. The space of Parona was exposed and the distal radial surface was exposed. The pronator quadratus was ruptured with fracture fragments poking through the pronator quadratus. The pronator quadratus was then elevated and proximal to the ulnar fashion, exposing the distal radius. Intraoperative findings included extensive comminuted metaphyseal fracture with intra-articular extension into the radiocarpal joint and displacement of fracture fragments along the radial aspect. Proximally, the flexor pollicis longus muscle was elevated off the surface of the radius. On the radial aspect the radial artery was protected out of harm's way and the first dorsal compartment was released. The tendons were then retracted dorsally and the tenotomy of brachioradialis was carried out in a step cut fashion. The fracture surface was then exposed and soft tissue was cleared between the fracture surface. The clots were removed from between the fracture surface, and fracture fragments were then manipulated by traction and manipulation obtaining reduction. C-arm was used to confirm the fracture reduction. A Skeletal [employer] MELODY standard 4-hole plate was then selected and was placed over the distal surface of the radius. A proximal screw was inserted in the oblong hole using a 3.5 cortical screw. The position of the plate was checked with the C arm the plate was well positioned both proximally and on the lateral view. The plate was well positioned below the watershed line. The distal fragments were then reduced to the plate and 2 guidewires were then inserted into the 2 heads of the plate, capturing the lunate and the radial fragments. Screws were then inserted in the distal ulnar aspect of the plate. Initially, a nonlocking fully threaded Peg was inserted, capturing the lunate fragment to the plate, 18 mm size was the screw and the rest of the screw holes were then filled up with a smooth locking Pegs, the length ranged between 18 to 20. Then, 4 screws were inserted into the lunate head of the plate. On the radial aspect 3 smooth locking pegs were inserted after drilling and capturing the radial fragment to the plate through the screw incision multiple C-arm views were obtained, to place a screw in the subchondral location and the length was also confirmed using multiple C-arm views. Attention was then directed proximally. Three screws were then inserted into the proximal plate holes. The screw lengths were measured between 14 mm, 3.5 screws. The fracture was well reduced and the plate was well positioned below the watershed line. Multiple C-arm views were obtained to confirm the fracture reduction and the plate and screw placement including PA, lateral and oblique views. Distal radioulnar joint was tested and was found to be stable. The fluoroscopy was carried out. The fracture was stable and the plate was well placed. Thorough wash was given. Bleeding points were cauterized with bipolar cautery. The tenotomized brachioradialis was then approximated using 4-0 Ethibond. The pronator quadratus was then draped over the plate and approximated to the brachioradialis and 2 distal soft tissues covering the plate with multiple 4-0 Ethibond stitches. Attention was then directed to the carpal tunnel region. Incision was made over the carpal tunnel region. Soft tissue dissection was carried out, exposing the palmar fascia. Using retractors, the carpal tunnel ligament was exposed and the carpal tunnel ligament was released in a distal to proximal direction. Complete release carried out. The deep volar forearm fascia was released. After ensuring complete review of the palmar skin was approximated using 4-0 nylon in a horizontal mattress interrupted fashion. Thorough wash was given and tourniquet was deflated at 120 minutes. He had good distal circulation after release of tourniquet. Bleeding points were cauterized with bipolar cautery. Skin flaps were then approximated using 4-0 nylon in a horizontal mattress interrupted fashion. Xeroform, bacitracin dressing applied. Bulky hand dressing was applied, which was held in place by [facility] and a volar wrist splint was applied, keeping the wrist in slight extension. The finger joints were left free. The patient was recovered and sent to recovery in stable condition. He will be discharged home on p.o. pain medications and follow up in 3-4 days for a dressing and a splint change. Ananth Yin MD SE/hiren , 03:28 PM , 03:43 PM
--- NOTE | 2018-04-06 18:52 | MB ---
cc: Ananth Yin MD DATE: 04/06/2018 REASON FOR CONSULTATION: Distal radius fracture, right wrist. HISTORY OF PRESENT ILLNESS: The patient is a 37-year-old, right-hand dominant male who presented with complaints of fall and injury to the right upper extremity. The patient states he was sitting in the back seat of a parked pickup truck that has a side by side door. The front door was open, but the back door was closed. The patient was leaning on it and it flew open, causing him to fall out of the truck, landing about 4 feet below, injuring his right upper extremity. The patient complains of pain, swelling and deformity of the right wrist. He also complains of numbness of the fingertips. He denies any other injury. He also complains of pain in the back. PAST MEDICAL HISTORY: Significant for attention deficit disorder, anxiety, bipolar affect and hypertension as well as PTSD. PAST SURGICAL HISTORY: Significant for hernia. SOCIAL HISTORY: Significant for smoking. PHYSICAL EXAMINATION: GENERAL: The patient is alert, oriented x 3. EXTREMITIES: Examination of right upper extremity reveals deformity of the right wrist with tenderness and swelling around the volar aspect of the forearm and the wrist region. He has numbness in the carpal tunnel median nerve distribution. He has intact capillary refill. Range of motion of the wrist is limited and painful. Elbow is nontender with full range of motion. DIAGNOSTIC DATA: X-rays of the right wrist shows a comminuted metaphyseal fracture with displacement and intra-articular extension and angulation. The patient had a CT scan which was negative. He had x-rays of the lumbar spine, which were negative. ASSESSMENT: A 37-year-old male with comminuted, displaced and metaphyseal fracture distal radius with intra-articular extension and carpal tunnel syndrome, right side. PLAN: Plan will be to keep the patient n.p.o., take him emergently for open reduction internal fixation of distal radius right wrist and open right carpal tunnel release. The patient has been explained the risks and benefits of the procedure. He has been consented for the same. Ananth Yin MD SE/hiren , 03:32 PM , 03:39 PM
[2018-04-06] MEDS: oxyCODONE/Acetaminophen 10/325 Tablet PO PRN (19:49)
[2018-04-06] MEDS: Senna/Docusate Sodium 8.6/50 MG Tablet PO SCH (22:56)
[2018-04-06] MEDS: Lisinopril 10 MG Tablet PO SCH (22:56)
[2018-04-07] MEDS: oxyCODONE/Acetaminophen 10/325 Tablet PO PRN (03:08)
[2018-04-07 05:14] VITALS: RESP 18
[2018-04-07 07:01] LABS: Baso % (Auto) 0.1 % (0.0-2.0); Hematocrit 38.2 % (39.0-51.0); Hemoglobin 12.6 gm/dL (13.0-17.0); Lymph # (Auto) 1.3 th/mm3 (1.0-4.8); Lymph % (Auto) 11.5 % (9.0-44.0); Mean Corpuscular Hemoglobin 27.3 pg (27.0-34.0); Mean Corpuscular Volume 82.9 fL (80.0-100.0); Mean Platelet Volume 7.8 fL (7.0-11.0); Mono # (Auto) 0.7 th/mm3 (0.0-0.9); Mono % (Auto) 6.4 % (0.0-8.0); Neut # (Auto) 9.6 th/mm3 (1.8-7.7); Platelet Count 233 th/mm3 (150-450); Red Blood Count 4.61 mil/mm3 (4.50-5.90); White Blood Count 11.7 th/mm3 (4.0-11.0)
[2018-04-07] MEDS: Sod Chloride 0.9% Inj 1,000 ML IV.CONT SCH (07:22)
[2018-04-07 07:25] LABS: Albumin 2.9 g/dL (3.4-5.0); Anion Gap 9 meq/L (5-15); Aspartate Aminotransferase 18 U/L (15-37); Blood Urea Nitrogen 12 mg/dL (7-18); Calcium 8.9 mg/dL (8.5-10.1); Carbon Dioxide 26.3 meq/L (21.0-32.0); Chloride 106 meq/L (98-107); Glomerular Filtration Rate Greater Than 89 mL/min (>89); Glucose,Random 119 mg/dL (74-106); Magnesium 2.3 mg/dL (1.5-2.5); Potassium 4.6 meq/L (3.5-5.1); Sodium 141 meq/L (136-145)
[2018-04-07 07:34] LABS: Alanine Aminotransferase 30 U/L (12-78); Alkaline Phosphatase 172 U/L (45-117); Free T4 (Free Thyroxine) 1.05 ng/dL (0.76-1.46); Thyroid Stimulating Hormone 0.424 uIU/mL (0.358-3.740); Total Protein 7.4 g/dL (6.4-8.2)
[2018-04-07] MEDS: Lisinopril 10 MG Tablet PO SCH (08:41)
[2018-04-07] MEDS: Gabapentin 300 MG Capsule PO SCH (08:41)
[2018-04-07] MEDS: Senna/Docusate Sodium 8.6/50 MG Tablet PO SCH (08:41)
[2018-04-07 08:52] VITALS: BP 145/71; PULSE 78; TEMP 97.8; O2SAT 98
[2018-04-07] MEDS ORDERED: Methadone 10 MG Tablet PO SCH (09:00)
--- NOTE | 2018-04-07 10:07 | P.PNIM ---
Subjective Interval history: Patient is a 37-year-old male who presented to the emergency department today with right arm pain status post fall. Patient states he was sitting in the backseat of a parked pickup truck that had [id number] doors. The front door was open but the back door was closed. The patient was leaning on and "flew open" causing him to fall out of the truck. He landed on his right outstretched hand and reports that he hit the right side of his head. He does not know if he lost consciousness but complains of headache, neck pain, low back pain, and pain deformity to his right wrist. Not on any anticoagulants or any antiplatelets tetanus was up-to-date Has chronic issues with ADD, bipolar, anxiety, posttraumatic stress disorder and hypertension and chronic pain with chronic methadone and neuropathy Family history is significant for diabetes and hypertension in both parents 10-1 doing well no new complaints wants to go home Physical Exam Vital signs: Vital Signs 04/06/18 11:09 04/06/18 15:20 04/06/18 15:30 Temperature 98.5 F Pulse Rate 71 76 71 Respiratory Rate 12 12 16 Blood Pressure 178/100 H 143/81 H 139/66 Pulse Oximetry 94 L 99 04/06/18 15:45 04/06/18 16:00 04/06/18 16:15 Temperature Pulse Rate 76 72 74 Respiratory Rate 12 12 12 Blood Pressure 137/71 137/74 139/74 Pulse Oximetry 97 97 97 04/06/18 17:29 04/06/18 20:00 04/07/18 00:00 Temperature 98.7 F 97.6 F 97.6 F Pulse Rate 80 86 79 Respiratory Rate 18 18 18 Blood Pressure 133/77 136/80 106/58 L Pulse Oximetry 96 96 96 04/07/18 00:48 04/07/18 04:00 04/07/18 08:00 Temperature 97.5 F L 97.8 F Pulse Rate 64 78 Respiratory Rate 14 18 18 Blood Pressure 123/72 145/71 H Pulse Oximetry 97 98 Intake & Output 04/06/18 04/07/18 04/07/18 18:59 06:59 18:59 Intake Total 1350 / 1350 1250 / 1250 Output Total 265 / 265 Balance 1085 / 1085 1250 / 1250 Weight 86.183 kg 86.18 kg Intake: IV 50 / 50 1000 / 1000 NS Inj 1,000 ML @ 100 mls/hr IV 1000 / 1000 .CONT .Q10H [facility] Rx#:[id number] Ancef 2 GM Premix Inj 2 gm In 50 / 50 50 ml @ 0 mls/hr IV.SIG .STK- [facility] Rx#:[id number] Oral 250 / 250 Anesthesia Amount 1300 / 1300 Output: Urine 250 / 250 Estimated Blood Loss 15 Other: # Voids 1 4 Date of Last Bowel Movement 04/06/18 04/06/18 Weight On Admission 86.183 kg Narrative: GENERAL: Awake alert arousable talkative and cooperative oriented x3 SKIN: Warm and dry. HEAD: Normocephalic. Atraumatic EYES: No scleral icterus. No injection or drainage. NECK: Supple, trachea midline. No JVD or lymphadenopathy. CARDIOVASCULAR: Regular rate and rhythm without murmurs, gallops, or rubs. S1- S2 no S3 or S4 RESPIRATORY: Breath sounds equal bilaterally. No accessory muscle use. GASTROINTESTINAL: Abdomen soft, non-tender, nondistended. MUSCULOSKELETAL: No cyanosis, or edema. Right hand is dressed and in a sling BACK: Nontender without obvious deformity. No CVA tenderness. Insight and judgment is limited secondary to medications Mood and behavior is somewhat appropriate Results - Labs CBC & Chem 7: 04/07/18 04:43 04/07/18 04:43 Laboratory Results - last 24 hr 04/06/18 04/06/18 04/06/18 07:00 07:00 07:00 WBC 8.4 RBC 4.54 Hgb 12.9 L Hct 37.4 L MCV 82.5 MCH 28.4 MCHC 34.5 RDW 14.8 Plt Count 256 MPV 7.9 Neut % (Auto) 51.9 Lymph % (Auto) 33.2 Mobile % (Auto) 9.0 H Eos % (Auto) 5.0 H Baso % (Auto) 0.9 Neut # (Auto) 4.4 Lymph # (Auto) 2.8 Mobile # (Auto) 0.8 Eos # (Auto) 0.4 Baso # (Auto) 0.1 WBC Differential . Differential Comment Auto diff final PT 9.6 L INR 0.9 Sodium 142 Potassium 4.0 Chloride 105 Carbon Dioxide 29.1 Anion Gap 8 BUN 14 Creatinine 0.91 Estimated GFR Greater than 89 Random Glucose 117 H Calcium 8.6 Phosphorus Magnesium Total Bilirubin AST ALT Alkaline Phosphatase Total Protein Albumin TSH Free T4 Blood Type Blood Type Recheck Antibody Screen 04/06/18 04/07/18 04/07/18 07:00 04:43 04:43 WBC 11.7 H RBC 4.61 Hgb 12.6 L Hct 38.2 L MCV 82.9 MCH 27.3 MCHC 33.0 RDW 15.0 Plt Count 233 MPV 7.8 Neut % (Auto) 82.0 H Lymph % (Auto) 11.5 Mobile % (Auto) 6.4 Eos % (Auto) 0.0 Baso % (Auto) 0.1 Neut # (Auto) 9.6 H Lymph # (Auto) 1.3 Mobile # (Auto) 0.7 Eos # (Auto) 0.0 Baso # (Auto) 0.0 WBC Differential . Differential Comment Auto diff final PT INR Sodium 141 Potassium 4.6 Chloride 106 Carbon Dioxide 26.3 Anion Gap 9 BUN 12 Creatinine 0.79 Estimated GFR Greater than 89 Random Glucose 119 H Calcium 8.9 Phosphorus 2.0 L Magnesium 2.3 Total Bilirubin 0.2 AST 18 ALT 30 Alkaline Phosphatase 172 H Total Protein 7.4 Albumin 2.9 L TSH 0.424 Free T4 1.05 Blood Type A Positive Blood Type Recheck Required Antibody Screen Negative - Imaging Impressions Wrist X-Ray 04/06/18 00:00 CONCLUSION: Excellent alignment of the distal radial fracture post plating. - Procedures Attending Provider: Ananth Yin Date: 04/06/18 15:14 Initialization Date: 04/06/18 15:14 - Preoperative Diagnosis (1) Other intraarticular fracture of lower end of right radius, initial encounter for closed fracture (2) Carpal tunnel syndrome, right - Postoperative Diagnosis (1) Carpal tunnel syndrome, right (2) Other intraarticular fracture of lower end of right radius, initial encounter for closed fracture Date of procedure: 04/06/18 Procedure: open reduction and internal fixation distal radius with volar plate and screws right wrist open right carpal tunnel release Anesthesia: GETA Surgeon: Ananth Yin MD Estimated blood loss (mL): 15 Tourniquet time (min): 120 Operation and Findings: comminuted metaphyseal fracture with intrarticular extension distal radius right wrist skeletal dynamics geminus standard volar 4 holed plate and screws Assessment and Plan - Assessment (1) ADD (attention deficit disorder) Code(s): F98.8 - Status: Chronic (2) PTSD (post-traumatic stress disorder) Code(s): F43.10 - Status: Chronic (3) Chronic pain Code(s): G89.29 - Status: Chronic (4) Tobacco abuse Code(s): Z72.0 - Status: Chronic (5) Radius and ulna distal fracture Code(s): S52.509A - ; S52.609A - Status: Acute (6) Other intraarticular fracture of lower end of right radius, initial encounter for closed fracture Code(s): S52.571A - Status: Acute (7) Carpal tunnel syndrome, right Code(s): G56.01 - Status: Acute - Plan Status post fall with fracture to the right radius status post repair by hand surgery -Pain control prescription is already been written by hand surgery Chronic pain on chronic methadone for which he goes to the methadone clinic daily 140 mg p.o. daily Tobacco abuse recommend cessation ADD/anxiety/bipolar and PTSD we will resume his chronic home medications hold the lithium since we do not know the dose Hypertension we will start on lisinopril Seizure disorder currently stable Chronic back pain on chronic methadone DDD on chronic pain medications with methadone Continue on SCDs and JAGDEEP hose for DVT prophylaxis Hopefully discharge later today when patient can get a ride History of carpal tunnel syndrome on the right Radius and ulnar distal fracture of the right hand wrist status post repair Follow-up with hand surgery as scheduled CAN DC TO HOME Code Status: FULL CODE Discussed Condition With: DC TO HOME DW RN AND PT AND CM Discharge Planning: Discharge later today when patient can find a ride to be discharged home
[2018-04-07 16:35] LABS: Hemoglobin A1c 6.1 % (4.3-6.0)
== END 2018-04-07 10:22 | disposition home or self-care (01) ==
LOC: NEPC 06:27 → N06 09:40 → HSDC 09:40 → HSDI 09:51 → N06 16:54
PROVIDERS: ADMIT Surgery Surgery of the Hand; ATTEND Surgery Surgery of the Hand

== ENCOUNTER 2018-05-13 07:44 | Inpatient (IN) ==
[2018-05-13] MEDS ORDERED: Azithromycin Inj 500 MG in Sodium Chlor 0.9% Inj 250 ML IV.SIG ONE (08:15)
[2018-05-13] MEDS ORDERED: Acetaminophen 325 MG Tablet PO ONE (08:15)
[2018-05-13] MEDS ORDERED: Sod Chloride 0.9% Inj 1,000 ML IV.SIG ONE (08:15)
--- NOTE | 2018-05-13 08:24 | ED ---
HPI General Chief Complaint: Respiratory Symptoms Stated Complaint: Poss Flu Complaint Time Seen by Provider: 05/13/18 07:51 Source: patient Mode of arrival: ambulatory Limitations: no limitations History of Present Illness HPI Narrative: The patient is a 37-year-old male who presents to the emergency department for cough and cold symptoms of 3 days duration. The patient recently had right wrist surgery performed 1 month ago by the hand surgeon. The patient was at home doing well until 3 days ago when he developed cough and cold symptoms. The patient notes that productive cough producing yellow sputum, shortness of breath, wheezing, body aches, nausea, vomiting, and diarrhea. The patient does note decreased oral intake secondary to persistent nausea and vomiting. The patient also notes a fever at home as high as 102. The patient does have a history of tobacco use, last cigarette was this morning. The patient denies any history of recurrent pneumonia. He did not receive an influenza vaccination this year. Symptoms are moderate and progressive. There are no current alleviating factors. MD Complaint: Reports fever and cough Onset (ago): day(s) Duration: constant and progressively worsening Severity: moderate Severity scale (1-10): 7 Relieving factors: nothing Exacerbating factors: nothing Description of mucous: Reports yellow Able to tolerate fluids by mouth: No Associated symptoms: Reports fever, chills, headache, nasal congestion, cough, shortness of breath, abdominal pain, nausea and vomiting Treatments prior to arrival: Reports none Related Data Home Medications Medication Instructions Recorded Confirmed hydroxyzine pamoate [Vistaril] 50 mg PO BID 04/06/18 05/13/18 lithium aspartate 5 mg DIRECTED 04/06/18 05/13/18 Previous Rx's Medication Instructions Recorded gabapentin 300 mg PO TID #90 cap 04/06/18 lisinopril 10 mg PO BID #60 tab 04/06/18 methadone 140 mg PO DAILY 04/06/18 nicotine 1 patch TRANSDERMAL DAILY #30 ea 04/06/18 sennosides-docusate sodium [Senna 2 tab PO BID #120 tab 04/06/18 Plus] Allergies Allergy/AdvReac Type Severity Reaction Status Date / Time bee venom protein (honey bee) Allergy Anaphylaxis Verified 04/06/18 06:44 [Bee sting] Review of Systems ROS: all other systems reviewed are negative PMFSH Social History Social History (Reviewed 04/06/18 @ 07:48 by SIRENA Trejo Substance History: No History of Abuse Second Hand Smoke Exposure: Yes Smoking Status: Current every day smoker Tobacco Type: Cigarettes How Often Do You Have a Drink Containing Alcohol: Never Hx Recent Travel: No Recent Travel in [place] within the Last 8 Weeks: No Recent Out of Country Travel within the Last 8 Weeks: No Immunization History Tetanus Immunization: Unsure Exam Narrative Exam Narrative: GENERAL: Awake, alert, nontoxic-appearing 37-year-old male who appears his stated age and is in mild respiratory distress. SKIN: Focused skin assessment warm/dry. HEAD: Atraumatic. Normocephalic. EYES: Pupils equal and round. No scleral icterus. No injection or drainage. ENT: No nasal bleeding or discharge. Mucous membranes pink and moist. NECK: Trachea midline. No JVD. CARDIOVASCULAR: Regular, tachycardic with a heart rate of 110. RESPIRATORY: Mild tachypnea with a respiratory rate of 22. Diffuse rhonchi noted. A few expiratory wheezes noted. GASTROINTESTINAL: Abdomen soft, non-tender, nondistended. No guarding or rigidity. MUSCULOSKELETAL: Right upper extremity in a splint per NEUROLOGICAL: Awake and alert. No obvious cranial nerve deficits. Motor grossly within normal limits. Normal speech. PSYCHIATRIC: Appropriate mood and affect; insight and judgment normal. Course Initial Documented Vital Signs Temperature 98.5 F 05/13/18 07:46 Pulse Rate 103 H 05/13/18 07:46 Respiratory Rate 18 05/13/18 07:46 Blood Pressure 140/56 L 05/13/18 07:46 Pulse Oximetry 84 L 05/13/18 07:46 Last Documented Vital Signs Temperature 98.5 F 05/13/18 07:46 Pulse Rate 88 05/13/18 10:06 Respiratory Rate 14 05/13/18 10:06 Blood Pressure 119/64 05/13/18 08:15 Pulse Oximetry 91 L 05/13/18 10:06 Medical Decision Making [facility] Narrative Medical decision making narrative: IV was established, labs are drawn and sent, and the patient was placed on cardiac telemetry monitoring and continuous pulse oximetry monitoring. EKG was ordered and interpreted. Chest x-ray was obtained. Blood culture and lactic acid were sent to lab. The patient was administered cefepime and Zithromax. The patient also received 2 DuoNeb's and ABG was performed. The patient's white count was elevated, lactic acid was elevated at 2.9. Chest x-ray was unremarkable, therefore, CT pulmonary angiogram was ordered for hypoxia and tachycardia with recent surgery. CT pulmonary angiogram reveals bilateral lower lobe pneumonia, no evidence of pulmonary embolism. The patient was administered a second liter of IV fluids, meets sepsis criteria with bilateral lower lobe pneumonia, tachycardia, hypoxia , and leukocytosis. The patient will be admitted to the on-call medical service. Medical Screen Exam Complete: Yes Emergency Medical Condition: Yes Differential Diagnosis Differential Diagnosis: Differential diagnosis includes pneumonia, bronchitis, pulmonary embolism, influenza, sepsis, hypoxia, septic shock, aspiration pneumonia. Lab Data Result diagrams: 05/13/18 08:00 05/13/18 08:00 Lab Results 05/13/18 05/13/18 05/13/18 Range/Units 08:00 08:00 08:00 WBC 15.6 H (4.0-11.0) th/mm3 RBC 4.56 (4.50-5.90) mil/mm3 Hgb 12.6 L (13.0-17.0) gm/dL Hct 38.8 L (39.0-51.0) % MCV 85.1 (80.0-100.0) fL MCH 27.6 (27.0-34.0) pg MCHC 32.4 (32.0-36.0) % RDW 15.2 (11.6-17.2) % Plt Count 223 (150-450) th/mm3 MPV 7.8 (7.0-11.0) fL Neut % (Auto) 84.5 H (16.0-70.0) % Lymph % (Auto) 9.6 (9.0-44.0) % [place] % (Auto) 5.8 (0.0-8.0) % Eos % (Auto) 0.0 (0.0-4.0) % Baso % (Auto) 0.1 (0.0-2.0) % Neut # (Auto) 13.2 H (1.8-7.7) th/mm3 Lymph # (Auto) 1.5 (1.0-4.8) th/mm3 [place] # (Auto) 0.9 (0.0-0.9) th/mm3 Eos # (Auto) 0.0 (0.0-0.4) th/mm3 Baso # (Auto) 0.0 (0.0-0.2) th/mm3 WBC Differential . Differential Comment Auto diff final Puncture Site Patient Temperature O2 Saturation (90-100) % ABG pH (7.380-7.420) ABG pCO2 (38-42) mmHg ABG pO2 (61-120) mmHg ABG HCO3 (22-26) mmol/L ABG O2 Content (12.0-20.0) Vol % ABG Base Excess (-2-2) mmol/L ABG Methemoglobin (0-2) % Marky Test Hemoglobin (12.0-16.0) G/DL Carboxyhemoglobin (0-4) % O2 Delivery Device Liter Flow L/M Critical Value Sodium 135 L (136-145) meq/L Potassium 4.4 (3.5-5.1) meq/L Chloride 97 L (98-107) meq/L Carbon Dioxide 29.7 (21.0-32.0) meq/L Anion Gap 8 (5-15) meq/L BUN 18 (7-18) mg/dL Creatinine 1.20 (0.60-1.30) mg/dL Estimated GFR 68 L (>89) mL/min Random Glucose 163 H (74-106) mg/dL Lactic Acid 2.9 H (0.4-2.0) mmol/L Calcium 8.9 (8.5-10.1) mg/dL Total Bilirubin 0.4 (0.2-1.0) mg/dL AST 43 H (15-37) U/L ALT 70 (12-78) U/L Alkaline Phosphatase 158 H (45-117) U/L Troponin I Less than 0.02 L (0.02-0.05) ng/mL Total Protein 8.3 H (6.4-8.2) g/dL Albumin 3.0 L (3.4-5.0) g/dL Lipase 33 L (73-393) U/L 05/13/18 Range/Units 09:53 WBC (4.0-11.0) th/mm3 RBC (4.50-5.90) mil/mm3 Hgb (13.0-17.0) gm/dL Hct (39.0-51.0) % MCV (80.0-100.0) fL MCH (27.0-34.0) pg MCHC (32.0-36.0) % RDW (11.6-17.2) % Plt Count (150-450) th/mm3 MPV (7.0-11.0) fL Neut % (Auto) (16.0-70.0) % Lymph % (Auto) (9.0-44.0) % [place] % (Auto) (0.0-8.0) % Eos % (Auto) (0.0-4.0) % Baso % (Auto) (0.0-2.0) % Neut # (Auto) (1.8-7.7) th/mm3 Lymph # (Auto) (1.0-4.8) th/mm3 [place] # (Auto) (0.0-0.9) th/mm3 Eos # (Auto) (0.0-0.4) th/mm3 Baso # (Auto) (0.0-0.2) th/mm3 WBC Differential Differential Comment Puncture Site Left radial Patient Temperature 98.6 O2 Saturation 91 (90-100) % ABG pH 7.31 L (7.380-7.420) ABG pCO2 57 H* (38-42) mmHg ABG pO2 71 (61-120) mmHg ABG HCO3 28 H (22-26) mmol/L ABG O2 Content 14.8 (12.0-20.0) Vol % ABG Base Excess 2.3 H (-2-2) mmol/L ABG Methemoglobin 0.5 (0-2) % Marky Test Present Hemoglobin 11.5 L (12.0-16.0) G/DL Carboxyhemoglobin 2.3 (0-4) % O2 Delivery Device Nasal cannula Liter Flow 4.00 L/M Critical Value Yes Sodium (136-145) meq/L Potassium (3.5-5.1) meq/L Chloride (98-107) meq/L Carbon Dioxide (21.0-32.0) meq/L Anion Gap (5-15) meq/L BUN (7-18) mg/dL Creatinine (0.60-1.30) mg/dL Estimated GFR (>89) mL/min Random Glucose (74-106) mg/dL Lactic Acid (0.4-2.0) mmol/L Calcium (8.5-10.1) mg/dL Total Bilirubin (0.2-1.0) mg/dL AST (15-37) U/L ALT (12-78) U/L Alkaline Phosphatase (45-117) U/L Troponin I (0.02-0.05) ng/mL Total Protein (6.4-8.2) g/dL Albumin (3.4-5.0) g/dL Lipase (73-393) U/L Imaging Data Radiologist's impression: Chest X-Ray 05/13/18 08:15 CONCLUSION: No acute cardiopulmonary disease. Chest CTA 05/13/18 08:45 CONCLUSION: 1. Consolidation in the right lower lobe with small milder area of consolidation in the left lower lobe. The findings are characteristic of pneumonia. 2. No evidence of pulmonary emboli. ECG Data EKG Prior to Arrival: No Attestation: I personally reviewed and interpreted this ECG as follows: Interpretation: EKG reveals normal sinus rhythm with a rate of 96. No ischemic changes noted. No ectopy noted. Discharge Plan Discharge Disposition Patient Disposition: 30 Still Patient Discharge Condition Condition: Stable Discharge Details Diagnosis: Pneumonia, Sepsis, Hypoxia Physicians Team ED Provider: Vish Amador Primary Care Provider: Primary Care Erin Castano Rxs /Orders / Referrals /Forms Prescriptions: No Action hydroxyzine pamoate [Vistaril] 50 mg Capsule 50 mg PO BID RF: 0 lithium aspartate 5 mg Capsule 5 mg DIRECTED RF: 0 nicotine 14 mg/24 hr Patch 24 Hour 1 patch Transdermal DAILY Qty: 30 RF: 0 sennosides-docusate sodium [Senna Plus] 8.6-50 mg Tablet 2 tab PO BID Qty: 120 RF: 0 lisinopril 10 mg Tablet 10 mg PO BID Qty: 60 RF: 0 Methadone 140 mg PO DAILY RF: 0 gabapentin 300 mg Capsule 300 mg PO TID Qty: 90 RF: 0 Discharge Interventions Interventions: Vital Signs Last Done: 05/13/18 07:50 Status ED Status: Pending Admission
--- NOTE | 2018-05-13 08:31 | XR ---
EXAM DATE: 05/13/2018 8:27 AM EST AGE/SEX: 37 years / Male INDICATIONS: Chest congestion, fever, and body aches. CLINICAL DATA: This is the patient's initial encounter. Patient reports that signs and symptoms have been present for 2 days and indicates a pain score of 5/10. MEDICAL/SURGICAL HISTORY: Hypertension. None. COMPARISON: [facility] [place], CHEST 1V SINGLE AP, 04/06/2018. . FINDINGS: The lungs are clear without infiltrate, nodule, or mass. There is no appreciable pleural e ffusion for technique. Heart and mediastinum are unremarkable. CONCLUSION: No acute cardiopulmonary disease. Electronically signed by: Waleska Vo MD 05/13/2018 8:30 AM EST
[2018-05-13 08:43] LABS: Baso % (Auto) 0.1 % (0.0-2.0); Hematocrit 38.8 % (39.0-51.0); Hemoglobin 12.6 gm/dL (13.0-17.0); Lymph # (Auto) 1.5 th/mm3 (1.0-4.8); Lymph % (Auto) 9.6 % (9.0-44.0); Mean Corpuscular HGB Conc 32.4 % (32.0-36.0); Mean Corpuscular Hemoglobin 27.6 pg (27.0-34.0); Mean Corpuscular Volume 85.1 fL (80.0-100.0); Mean Platelet Volume 7.8 fL (7.0-11.0); Mono # (Auto) 0.9 th/mm3 (0.0-0.9); Mono % (Auto) 5.8 % (0.0-8.0); Neut # (Auto) 13.2 th/mm3 (1.8-7.7); Neut % (Auto) 84.5 % (16.0-70.0); Platelet Count 223 th/mm3 (150-450); Red Blood Count 4.56 mil/mm3 (4.50-5.90); Red Cell Distribution Width 15.2 % (11.6-17.2); White Blood Count 15.6 th/mm3 (4.0-11.0)
[2018-05-13 09:00] LABS: Alanine Aminotransferase 70 U/L (12-78); Anion Gap 8 meq/L (5-15); Aspartate Aminotransferase 43 U/L (15-37); Blood Urea Nitrogen 18 mg/dL (7-18); Calcium 8.9 mg/dL (8.5-10.1); Carbon Dioxide 29.7 meq/L (21.0-32.0); Chloride 97 meq/L (98-107); Glomerular Filtration Rate 68 mL/min (>89); Glucose,Random 163 mg/dL (74-106); Lipase 33 U/L (73-393); Potassium 4.4 meq/L (3.5-5.1); Sodium 135 meq/L (136-145)
[2018-05-13 09:04] LABS: Alkaline Phosphatase 158 U/L (45-117); Total Protein 8.3 g/dL (6.4-8.2)
--- NOTE | 2018-05-13 10:01 | CT ---
EXAM DATE: 05/13/2018 9:42 AM EST AGE/SEX: 37 years / Male INDICATIONS: Shortness of breath. Chest pain. CLINICAL DATA: This is the patient's initial encounter. Patient reports that signs and symptoms have been present for 1 day and indicates a pain score of 8/10. MEDICAL/SURGICAL HISTORY: Hypertension. Seizure. . Hernia surgery. RADIATION DOSE: 20.38 CTDI (mGy) COMPARISON: [facility], CHEST 1V SINGLE AP, 05/13/2018. . TECHNIQUE: Volumetric scanning was performed using a multi-row detector CT scanner during bolus infu lucinda of 72 ml Omnipaque 350 (iohexol) nonionic water-soluble contrast as a single exam dose. The solange a was post processed with a variety of visualization algorithms including full volume maximum intensi ty projection and sliding thin slab reformation. Using automated exposure control and adjustment of t he mA and/or kV according to patient size, radiation dose was kept as low as reasonably achievable to obtain optimal diagnostic quality images. DICOM format image data is available electronically for r eview and comparison. FINDINGS: Pulmonary Arteries: No filling defects are seen in the pulmonary arteries out to the subsegmental ve ssels. The left and right pulmonary arteries are normal in diameter. Lung: Consolidation in the left lower lobe. Effusion: None. Mediastinum: No evidence of mediastinal or hilar adenopathy. Other: The axilla is unremarkable. CONCLUSION: 1. Consolidation in the right lower lobe with small milder area of consolidation in the left lower l obe. The findings are characteristic of pneumonia. 2. No evidence of pulmonary emboli. Electronically signed by: Aiden Mckay MD 05/13/2018 9:59 AM EST
[2018-05-13 10:04] LABS: ABG Base Excess 2.3 mmol/L (-2-2); ABG PCO2 57 mmHg (38-42); ABG PO2 71 mmHg (61-120)
[2018-05-13] MEDS ORDERED: Sod Chloride 0.9% Inj 1,000 ML IV.SIG SCH (10:30)
[2018-05-13 11:05] LABS: Bacteria,Urine Rare /hpf; Bilirubin,Urine Negative (Negative); Clarity,Urine Hazy (Clear); Color,Urine Amber (Yellw/Straw); Glucose,Urine (UA) Negative (Negative); Hyaline Casts,Urine 2 /lpf (0-3); Leukocyte Esterase,Urine Negative (Negative); Mucus,Urine Moderate /lpf (Occasional); Nitrite,Urine Negative (Negative); Specific Gravity,Urine 1.054 (1.002-1.035); Squamous Epithelial Cell,Urine 1 /hpf (0-5)
--- NOTE | 2018-05-13 11:42 | ECG ---
Date Performed: 05/13/2018 Time Performed: 08:10:52 PTAGE: 37 years EKG: Sinus rhythm NORMAL ECG Compared to prior electrocardiogram, rate has increased . PREVIOUS TRACING : 04/06/2018 10.16 DOCTOR: Lopez Benson Interpretating Date/Time 05/13/2018 11:41:32
[2018-05-13] MEDS ORDERED: Acetaminophen 325 MG Tablet PO PRN (12:00)
--- NOTE | 2018-05-13 16:17 | P.HP ---
History of Present Illness Primary Care Physician: No Primary Care Physician Chief Complaint: Cough production History of Present Illness: 37-year-old male with a history of seizure disorder, PTSD, presented to the ED for evaluation of 3-day history of cough production, subjective fevers, upper respiratory symptoms and generalized weakness. CTA chest revealed right pulmonary consolidation without any evidence of PE. Abnormal lab include elevated WBC and lactic acid. Patient also endorses shortness of breath along with chest pain associated with deep inspiration and coughing. - Diagnosis (1) Sepsis (2) HCAP (healthcare-associated pneumonia) (3) Sepsis Inpatient Certification: I certify that the inpatient services were ordered in accordance with Medicare regulations governing the order. This includes certification that hospital inpatient services are reasonable and necessary and in the case of services not specified as inpatient-only under 42 CFR 419.22(n), that they are appropriately provided as inpatient services in accordance to with the 2-midnight benchmark under 43 CFR 412.3(e) Estimated Total Length of Stay (Days): 2 Plans for Post Hospital Care: Other Review of Systems All other systems reviewed negative except as stated in HPI PMFSH - History History Provided By: Patient - Medical History Medical History: Medical History (Last Reviewed 05/13/18 @ 07:50 by Radha Brian) ADD (attention deficit disorder) Anxiety Back problem Bipolar affect, depressed DDD (degenerative disc disease) HTN (hypertension) PTSD (post-traumatic stress disorder) Seizure - Surgical History Surgical History: Surgical History (Last Reviewed 05/13/18 @ 07:50 by Radha Brian) S/P hernia surgery - Family History Family History: Family History (Last Reviewed 04/07/18 @ 07:53 by Vida Carr) Other Family history of diabetes mellitus Family history of hypertension - Tobacco History Second Hand Smoke Exposure: No Tobacco Use In Past 30 Days: Yes Smoking Status: Current every day smoker Tobacco Type: Cigarettes - Alcohol History How Often Do You Have a Drink Containing Alcohol: Never - Substance Use History Substance History: No History of Abuse - Travel History History of Recent Travel: No Recent Travel in the [place] Within the Last 8 Weeks: No Recent Travel Out of the Country Within the Last 8 Weeks: No - Immunization History Tetanus Immunization: Unsure Medications and Allergies Active Medications: Active Medications Acetaminophen (Tylenol) 650 mg PO Q4H PRN PRN Reason: FEVER > 100.4 F Al Hydroxide/Mg Hydroxide (Milk Of Maren Jensen) 30 ml PO Q12H PRN PRN Reason: Mild Constipation Albuterol (Duoneb Neb (Prn)) 1 ampul NEB Q2HR NEB PRN PRN Reason: SHORTNESS OF BREATH Guaifenesin (Mucinex Er) 600 mg PO BID [place] Ibuprofen (Motrin) 400 mg PO Q6HR PRN PRN Reason: PAIN SCALE 1 TO 2 Nicotine (Habitrol 21 Mg Patch.24 Hr) 1 patch T-DERMAL DAILY [facility] Last Admin: 05/13/18 16:10 Dose: 1 patch Ondansetron HCl (Zofran Inj) 4 mg IV.PUSH Q6H PRN PRN Reason: NAUSEA OR VOMITING Patch Removal (Remove Old Patch) 1 each T-DERMAL DAILY [facility] Sodium Chloride (Ns Flush) 2 ml IV.FLUSH PRN PRN PRN Reason: FLUSH AFTER USING IV ACCESS Allergies Allergy/AdvReac Type Severity Reaction Status Date / Time bee venom protein (honey bee) Allergy Anaphylaxis Verified 04/06/18 06:44 [Bee sting] Home Medications Medication Instructions Recorded Confirmed Type hydroxyzine pamoate [Vistaril] 50 mg PO BID 04/06/18 05/13/18 History lithium aspartate 5 mg DIRECTED 04/06/18 05/13/18 History Exam Vital signs: Vital Signs 05/13/18 07:46 05/13/18 07:50 05/13/18 08:15 Temperature 98.5 F Pulse Rate 103 H 102 H Respiratory Rate 18 20 17 Blood Pressure 140/56 L 132/75 119/64 Pulse Oximetry 84 L 86 L 93 L 05/13/18 10:06 05/13/18 11:58 05/13/18 15:47 Temperature Pulse Rate 88 86 64 Respiratory Rate 14 18 20 Blood Pressure 116/64 132/70 Pulse Oximetry 91 L 94 L Intake & Output 05/12/18 05/13/18 05/13/18 18:59 06:59 18:59 Intake Total 2350 / 2350 Balance 2350 / 2350 Weight 95.2 kg Intake: IV 2350 / 2350 Azithromycin Inj 500 MG In NS 250 / 250 Inj 250 ML @ 250 mls/hr IV.SIG ONCE ONE Rx#:[id number] Maxipime Inj 2,000 MG In NS Inj 100 / 100 100 ML @ 200 mls/hr IV.SIG ONCE ONE Rx#:[id number] NS Inj 1,000 ML @ 1000 mls/hr 1999 IV.SIG BOLUS [place] Rx#:[id number] Other: Weight On Admission 95.2 kg Narrative: GENERAL: NAD however sick looking SKIN: Warm and dry. HEAD: Atraumatic. Normocephalic. EYES: Pupils equal and round. No scleral icterus. No injection or drainage. ENT: No nasal bleeding or discharge. Mucous membranes pink and moist. NECK: Trachea midline. No JVD. CARDIOVASCULAR: Regular rate and rhythm. RESPIRATORY: No accessory muscle use. Clear to auscultation. Breath sounds decrease bilaterally. GASTROINTESTINAL: Abdomen soft, non-tender, nondistended. Hepatic and splenic margins not palpable. MUSCULOSKELETAL: Extremities without clubbing, cyanosis, or edema. No obvious deformities. NEUROLOGICAL: Awake and alert. No obvious cranial nerve deficits. Motor grossly within normal limits. Five out of 5 muscle strength in the arms and legs. Normal speech. PSYCHIATRIC: Appropriate mood and affect; insight and judgment normal. Results - Labs CBC & Chem 7: 05/13/18 08:00 05/13/18 08:00 Labs: Laboratory Results - last 24 hr 05/13/18 05/13/18 05/13/18 08:00 08:00 08:00 WBC 15.6 H RBC 4.56 Hgb 12.6 L Hct 38.8 L MCV 85.1 MCH 27.6 MCHC 32.4 RDW 15.2 Plt Count 223 MPV 7.8 Neut % (Auto) 84.5 H Lymph % (Auto) 9.6 [place] % (Auto) 5.8 Eos % (Auto) 0.0 Baso % (Auto) 0.1 Neut # (Auto) 13.2 H Lymph # (Auto) 1.5 [place] # (Auto) 0.9 Eos # (Auto) 0.0 Baso # (Auto) 0.0 WBC Differential . Differential Comment Auto diff final Puncture Site Patient Temperature O2 Saturation ABG pH ABG pCO2 ABG pO2 ABG HCO3 ABG O2 Content ABG Base Excess ABG Methemoglobin Marky Test Hemoglobin Carboxyhemoglobin O2 Delivery Device Liter Flow Critical Value Sodium 135 L Potassium 4.4 Chloride 97 L Carbon Dioxide 29.7 Anion Gap 8 BUN 18 Creatinine 1.20 Estimated GFR 68 L Random Glucose 163 H Lactic Acid 2.9 H Calcium 8.9 Total Bilirubin 0.4 AST 43 H ALT 70 Alkaline Phosphatase 158 H Troponin I Less than 0.02 L Total Protein 8.3 H Albumin 3.0 L Lipase 33 L Urine Color Urine Clarity Urine pH Ur Specific [place] Urine Protein Urine Glucose (UA) Urine Ketones Urine Occult Blood Urine Nitrate Urine Bilirubin Urine Urobilinogen Ur Leukocyte Esterase Urine RBC Urine WBC Ur Squamous Epith Cells Urine Bacteria Hyaline Casts Urine Mucus Micro UA Comment Ur Microscopic Review Urine Culture Comments 05/13/18 05/13/18 05/13/18 09:53 10:40 11:15 WBC RBC Hgb Hct MCV MCH MCHC RDW Plt Count MPV Neut % (Auto) Lymph % (Auto) [place] % (Auto) Eos % (Auto) Baso % (Auto) Neut # (Auto) Lymph # (Auto) [place] # (Auto) Eos # (Auto) Baso # (Auto) WBC Differential Differential Comment Puncture Site Left radial Patient Temperature 98.6 O2 Saturation 91 ABG pH 7.31 L ABG pCO2 57 H* ABG pO2 71 ABG HCO3 28 H ABG O2 Content 14.8 ABG Base Excess 2.3 H ABG Methemoglobin 0.5 Marky Test Present Hemoglobin 11.5 L Carboxyhemoglobin 2.3 O2 Delivery Device Nasal cannula Liter Flow 4.00 Critical Value Yes Sodium Potassium Chloride Carbon Dioxide Anion Gap BUN Creatinine Estimated GFR Random Glucose Lactic Acid 1.8 Calcium Total Bilirubin AST ALT Alkaline Phosphatase Troponin I Total Protein Albumin Lipase Urine Color Laurie Urine Clarity Hazy H Urine pH 5.0 Ur Specific [place] 1.054 H Urine Protein 30 H Urine Glucose (UA) Negative Urine Ketones Negative Urine Occult Blood Moderate H Urine Nitrate Negative Urine Bilirubin Negative Urine Urobilinogen Less than 2 Ur Leukocyte Esterase Negative Urine RBC 10 H Urine WBC 2 Ur Squamous Epith Cells 1 Urine Bacteria Rare H Hyaline Casts 2 Urine Mucus Moderate H Micro UA Comment Culture not ind Ur Microscopic Review Not Reportable Urine Culture Comments Culture not ind - Imaging Impressions Chest X-Ray 05/13/18 08:15 CONCLUSION: No acute cardiopulmonary disease. Chest CTA 05/13/18 08:45 CONCLUSION: 1. Consolidation in the right lower lobe with small milder area of consolidation in the left lower lobe. The findings are characteristic of pneumonia. 2. No evidence of pulmonary emboli. Caprini VTE Risk Assessment Caprini Risk Assessment Model: Point Value = 1 Point Value = 2 Point Value = 3 Point Value = 5 Age 41-60 Minor surgery BMI > 25 kg/m2 Swollen legs Varicose veins or History of unexplained or recurrent spontaneous Oral contraceptives or hormone replacement Sepsis (< 1 month) Serious lung disease, including pneumonia (< 1 month) Abnormal pulmonary function Acute myocardial infarction Congestive heart failure (< 1 month) History of inflammatory bowel disease Medical patient at bed rest Age 61-74 Arthroscopic surgery Major open surgery (> 45 min) Laparoscopic surgery (> 45 min) Malignancy Confined to bed (> 72 hours) Immobilizing plaster cast Central venous access Age >= 75 History of VTE Family history of VTE Factor V Leiden Prothrombin 41204A Lupus anticoagulant Anticardiolipin antibodies Elevated serum homocysteine Heparin-induced thrombocytopenia Other congenital or acquired thrombophilia Stroke (< 1 month) Elective arthroplasty Hip, pelvis, or leg fracture Acute spinal cord injury (< 1 month) Prophylaxis Regimen: Total Risk Factor Score Risk Level Prophylaxis Regimen 0-1 Low Early ambulation 2 Moderate Order ONE of the following: *Sequential Compression Device (SCD) *Heparin 5000 units SQ BID 3-4 Higher Order ONE of the following medications: *Heparin 5000 units SQ TID *Enoxaparin/Lovenox 40 mg SQ daily (WT < 150 kg, CrCl > 30 mL/min) *Enoxaparin/Lovenox 30 mg SQ daily (WT < 150 kg, CrCl > 10-29 mL/min) *Enoxaparin/Lovenox 30 mg SQ BID (WT < 150 kg, CrCl > 30 mL/min) AND/OR *Sequential Compression Device (SCD) 5 or more Highest Order ONE of the following medications: *Heparin 5000 units SQ TID (Preferred with Epidurals) *Enoxaparin/Lovenox 40 mg SQ daily (WT < 150 kg, CrCl > 30 mL/min) *Enoxaparin/Lovenox 30 mg SQ daily (WT < 150 kg, CrCl > 10-29 mL/min) *Enoxaparin/Lovenox 30 mg SQ BID (WT < 150 kg, CrCl > 30 mL/min) AND *Sequential Compression Device (SCD) Assessment and Plan - Assessment (1) Sepsis Code(s): A41.9 - Sepsis, unspecified organism Status: Acute (2) HCAP (healthcare-associated pneumonia) Code(s): J18.9 - Pneumonia, unspecified organism Status: Acute (3) Sepsis Code(s): A41.9 - Sepsis, unspecified organism Status: Acute - Plan 37-year-old man with Severe sepsis: Meet sepsis criteria on admission Secondary to HCAP Post IV cefepime, continue with antibiotics pending culture report Hospital acquired community pneumonia CTA noted in review with finding of right pulmonary infiltrate and negative for PE Influenza a and B antigen negative Status post azithromycin and cefepime IV x1 in ED, continue with IV cefepime 2 g every 8 hour Sputum culture and blood culture pending DuoNeb, Mucinex, guaifenesin Tobacco abuse Tobacco counseling cessation provided Start nicotine patch History of seizure disorder, PTSD, hypertension Outpatient medications Chronic pain syndrome Resume methadone 140 mg daily DVT prophylaxis: Bilateral SCDs (3) Sepsis Qualifiers: Sepsis type: sepsis due to unspecified organism Qualified Code(s): A41.9 - Sepsis, unspecified organism
[2018-05-13] MEDS: Gabapentin 300 MG Capsule PO SCH (17:03)
[2018-05-13] MEDS: Lisinopril 10 MG Tablet PO SCH (22:38)
[2018-05-13] MEDS: guaiFENesin 600 MG ER Tablet PO SCH (22:39)
[2018-05-14 07:00] LABS: Baso % (Auto) 0.3 % (0.0-2.0); Eos # (Auto) 0.2 th/mm3 (0.0-0.4); Eos % (Auto) 1.8 % (0.0-4.0); Hematocrit 32.2 % (39.0-51.0); Hemoglobin 10.3 gm/dL (13.0-17.0); Lymph % (Auto) 16.9 % (9.0-44.0); Mean Corpuscular Hemoglobin 27.2 pg (27.0-34.0); Mean Corpuscular Volume 84.8 fL (80.0-100.0); Mean Platelet Volume 8.1 fL (7.0-11.0); Mono # (Auto) 0.8 th/mm3 (0.0-0.9); Mono % (Auto) 6.6 % (0.0-8.0); Neut # (Auto) 8.7 th/mm3 (1.8-7.7); Neut % (Auto) 74.4 % (16.0-70.0); Platelet Count 181 th/mm3 (150-450); Red Cell Distribution Width 15.6 % (11.6-17.2); White Blood Count 11.7 th/mm3 (4.0-11.0)
[2018-05-14 07:01] LABS: Alanine Aminotransferase 51 U/L (12-78); Albumin 2.3 g/dL (3.4-5.0); Alkaline Phosphatase 125 U/L (45-117); Anion Gap 4 meq/L (5-15); Aspartate Aminotransferase 29 U/L (15-37); Blood Urea Nitrogen 17 mg/dL (7-18); Calcium 8.2 mg/dL (8.5-10.1); Carbon Dioxide 30.6 meq/L (21.0-32.0); Chloride 105 meq/L (98-107); Glomerular Filtration Rate Greater Than 89 mL/min (>89); Glucose,Random 91 mg/dL (74-106); Sodium 140 meq/L (136-145); Total Protein 6.6 g/dL (6.4-8.2)
[2018-05-14] MEDS: Methadone 10 MG Tablet PO SCH (08:23)
[2018-05-14] MEDS: guaiFENesin 600 MG ER Tablet PO SCH ×2 (08:25→21:25)
[2018-05-14] MEDS: Lisinopril 10 MG Tablet PO SCH ×2 (08:25→21:25)
[2018-05-14] MEDS: Gabapentin 300 MG Capsule PO SCH ×3 (08:28→17:01)
--- NOTE | 2018-05-14 10:03 | P.PN ---
Subjective Interval history: Follow-up severe sepsis May 14, 2018-patient seen and examined reported improvement of shortness of breath, mentation. Some slight wheezing on exam otherwise stable and afebrile Physical Exam Vital signs: Vital Signs 05/13/18 10:06 05/13/18 11:58 05/13/18 15:30 Temperature 97 F L Pulse Rate 88 86 91 H Respiratory Rate 14 18 21 Blood Pressure 116/64 119/75 Pulse Oximetry 91 L 94 L 91 L 05/13/18 15:47 05/13/18 17:05 05/13/18 20:00 Temperature 98.8 F Pulse Rate 64 82 92 H Respiratory Rate 20 18 Blood Pressure 132/70 127/65 Pulse Oximetry 94 L 05/14/18 00:00 05/14/18 04:00 05/14/18 07:57 Temperature 98.1 F 97.9 F Pulse Rate 90 79 Respiratory Rate 17 17 20 Blood Pressure 120/59 L 111/59 L Pulse Oximetry 94 L 98 05/14/18 08:00 Temperature 97.6 F Pulse Rate 75 Respiratory Rate 21 Blood Pressure 141/88 H Pulse Oximetry 97 Intake & Output 05/13/18 05/14/18 05/14/18 18:59 06:59 18:59 Intake Total 2450 / 2450 760 / 760 Output Total 500 / 500 Balance 2450 / 2450 260 / 260 Weight 95.2 kg 95 kg Intake: IV 2450 / 2450 100 / 100 Azithromycin Inj 500 MG In NS 250 / 250 Inj 250 ML @ 250 mls/hr IV.SIG ONCE ONE Rx#:[id number] Maxipime Inj 2,000 MG In NS Inj 200 / 200 100 / 100 100 ML @ 200 mls/hr IV.SIG Q8H [place] Rx#:[id number] NS Inj 1,000 ML @ 1000 mls/hr 2000 / 2000 IV.SIG BOLUS [facility] Rx#:[id number] Oral 660 / 660 Output: Urine 500 / 500 Other: # Voids 1 3 Weight On Admission 95.2 kg Narrative: GENERAL: NAD SKIN: Warm and dry. HEAD: Atraumatic. Normocephalic. EYES: Pupils equal and round. No scleral icterus. No injection or drainage. ENT: No nasal bleeding or discharge. Mucous membranes pink and moist. NECK: Trachea midline. No JVD. CARDIOVASCULAR: Regular rate and rhythm. RESPIRATORY: No accessory muscle use. Clear to auscultation. Breath sounds decrease bilaterally. + Expiratory wheezing GASTROINTESTINAL: Abdomen soft, non-tender, nondistended. Hepatic and splenic margins not palpable. MUSCULOSKELETAL: Extremities without clubbing, cyanosis, or edema. No obvious deformities. NEUROLOGICAL: Awake and alert. No obvious cranial nerve deficits. Motor grossly within normal limits. Five out of 5 muscle strength in the arms and legs. Normal speech. PSYCHIATRIC: Appropriate mood and affect; insight and judgment normal. Results - Labs CBC & Chem 7: 05/14/18 04:30 05/14/18 04:30 Laboratory Results - last 24 hr 05/13/18 05/13/18 05/13/18 09:53 10:40 11:15 WBC RBC Hgb Hct MCV MCH MCHC RDW Plt Count MPV Neut % (Auto) Lymph % (Auto) [place] % (Auto) Eos % (Auto) Baso % (Auto) Neut # (Auto) Lymph # (Auto) [place] # (Auto) Eos # (Auto) Baso # (Auto) WBC Differential Differential Comment Puncture Site Left radial Patient Temperature 98.6 O2 Saturation 91 ABG pH 7.31 L ABG pCO2 57 H* ABG pO2 71 ABG HCO3 28 H ABG O2 Content 14.8 ABG Base Excess 2.3 H ABG Methemoglobin 0.5 Marky Test Present Hemoglobin 11.5 L Carboxyhemoglobin 2.3 O2 Delivery Device Nasal cannula Liter Flow 4.00 Critical Value Yes Sodium Potassium Chloride Carbon Dioxide Anion Gap BUN Creatinine Estimated GFR Random Glucose Lactic Acid 1.8 Calcium Total Bilirubin AST ALT Alkaline Phosphatase Total Protein Albumin Urine Color Laurie Urine Clarity Hazy H Urine pH 5.0 Ur Specific [place] 1.054 H Urine Protein 30 H Urine Glucose (UA) Negative Urine Ketones Negative Urine Occult Blood Moderate H Urine Nitrate Negative Urine Bilirubin Negative Urine Urobilinogen Less than 2 Ur Leukocyte Esterase Negative Urine RBC 10 H Urine WBC 2 Ur Squamous Epith Cells 1 Urine Bacteria Rare H Hyaline Casts 2 Urine Mucus Moderate H Micro UA Comment Culture not ind Ur Microscopic Review Not Reportable Urine Culture Comments Culture not ind 05/14/18 05/14/18 04:30 04:30 WBC 11.7 H RBC 3.80 L Hgb 10.3 L D Hct 32.2 L MCV 84.8 MCH 27.2 MCHC 32.0 RDW 15.6 Plt Count 181 MPV 8.1 Neut % (Auto) 74.4 H Lymph % (Auto) 16.9 [place] % (Auto) 6.6 Eos % (Auto) 1.8 Baso % (Auto) 0.3 Neut # (Auto) 8.7 H Lymph # (Auto) 2.0 [place] # (Auto) 0.8 Eos # (Auto) 0.2 Baso # (Auto) 0.0 WBC Differential . Differential Comment Auto diff final Puncture Site Patient Temperature O2 Saturation ABG pH ABG pCO2 ABG pO2 ABG HCO3 ABG O2 Content ABG Base Excess ABG Methemoglobin Marky Test Hemoglobin Carboxyhemoglobin O2 Delivery Device Liter Flow Critical Value Sodium 140 Potassium 4.0 Chloride 105 D Carbon Dioxide 30.6 Anion Gap 4 L BUN 17 Creatinine 0.87 Estimated GFR Greater than 89 Random Glucose 91 Lactic Acid Calcium 8.2 L Total Bilirubin 0.2 AST 29 ALT 51 Alkaline Phosphatase 125 H Total Protein 6.6 D Albumin 2.3 L D Urine Color Urine Clarity Urine pH Ur Specific [place] Urine Protein Urine Glucose (UA) Urine Ketones Urine Occult Blood Urine Nitrate Urine Bilirubin Urine Urobilinogen Ur Leukocyte Esterase Urine RBC Urine WBC Ur Squamous Epith Cells Urine Bacteria Hyaline Casts Urine Mucus Micro UA Comment Ur Microscopic Review Urine Culture Comments Microbiology 05/13/18 08:20 Sputum - Expectorated Sputum Gram Stain - Final 05/13/18 08:35 Nasal Wash Influenza Types A,B Antigen - Final Negative for FLU A and B antigen Infection due to influenza A or B cannot be ruled out since the antigen present in the sample may be below the detection limit of the test. - Imaging Impressions Chest CTA 05/13/18 08:45 CONCLUSION: 1. Consolidation in the right lower lobe with small milder area of consolidation in the left lower lobe. The findings are characteristic of pneumonia. 2. No evidence of pulmonary emboli. Assessment and Plan - Assessment (1) Sepsis Code(s): A41.9 - Sepsis, unspecified organism Status: Acute (2) HCAP (healthcare-associated pneumonia) Code(s): J18.9 - Pneumonia, unspecified organism Status: Acute (3) Sepsis Code(s): A41.9 - Sepsis, unspecified organism Status: Acute - Plan 37-year-old man with Severe sepsis: Meet sepsis criteria on admission Secondary to HCAP Currently on IV cefepime pending culture report Hospital acquired community pneumonia CTA with finding of right pulmonary infiltrate and negative for PE Influenza a and B antigen negative Status post azithromycin and cefepime IV x1 in ED, continue with IV cefepime 2 g every 8 hour Sputum culture and blood culture pending DuoNeb, Mucinex, guaifenesin Add Solu-Medrol 20 mg IV every 12 hours times 24 hours Tobacco abuse Tobacco counseling cessation provided Continue nicotine patch History of seizure disorder, PTSD, hypertension Continue outpatient medications Chronic pain syndrome On methadone 140 mg daily DVT prophylaxis: Bilateral SCDs (3) Sepsis Qualifiers: Sepsis type: sepsis due to unspecified organism Qualified Code(s): A41.9 - Sepsis, unspecified organism
[2018-05-14] MEDS: MethylPREDNISolone Sod Succinate Inj 40 MG/ML Vial IV.PUSH SCH ×2 (13:44→21:25)
[2018-05-14] MEDS: Ibuprofen 400 MG Tablet PO PRN (21:26)
[2018-05-15] MEDS: MethylPREDNISolone Sod Succinate Inj 40 MG/ML Vial IV.PUSH SCH (06:22)
[2018-05-15] MEDS: Methadone 10 MG Tablet PO SCH ×2 (06:59→10:17)
[2018-05-15 07:21] LABS: Baso % (Auto) 0.2 % (0.0-2.0); Hematocrit 35.1 % (39.0-51.0); Hemoglobin 11.3 gm/dL (13.0-17.0); Lymph # (Auto) 1.1 th/mm3 (1.0-4.8); Lymph % (Auto) 12.6 % (9.0-44.0); Mean Corpuscular HGB Conc 32.2 % (32.0-36.0); Mean Corpuscular Hemoglobin 27.4 pg (27.0-34.0); Mean Corpuscular Volume 85.2 fL (80.0-100.0); Mean Platelet Volume 8.2 fL (7.0-11.0); Mono # (Auto) 0.3 th/mm3 (0.0-0.9); Mono % (Auto) 3.6 % (0.0-8.0); Neut # (Auto) 7.5 th/mm3 (1.8-7.7); Neut % (Auto) 83.6 % (16.0-70.0); Platelet Count 217 th/mm3 (150-450); Red Blood Count 4.12 mil/mm3 (4.50-5.90); Red Cell Distribution Width 15.3 % (11.6-17.2)
[2018-05-15 08:19] VITALS: TEMP 97.9; O2SAT 93
[2018-05-15] MEDS: Gabapentin 300 MG Capsule PO SCH (10:12)
[2018-05-15] MEDS: Ibuprofen 400 MG Tablet PO PRN (10:12)
[2018-05-15] MEDS: guaiFENesin 600 MG ER Tablet PO SCH (10:12)
[2018-05-15] MEDS: Lisinopril 10 MG Tablet PO SCH (10:13)
--- NOTE | 2018-05-15 10:15 | P.PN ---
Subjective Interval history: Follow-up severe sepsis May 14, 2018-patient seen and examined reported improvement of shortness of breath, mentation. Some slight wheezing on exam otherwise stable and afebrile May 15, 2018-patient seen and examined, reports improvements of his respiratory function. Patient states he is back to over 80% of his baseline. Physical Exam Vital signs: Vital Signs 05/14/18 13:15 05/14/18 16:00 05/14/18 20:00 Temperature 97.4 F L 97.7 F 97.6 F Pulse Rate 79 76 73 Respiratory Rate 16 18 16 Blood Pressure 104/57 L 104/56 L 133/74 Pulse Oximetry 94 L 96 96 05/14/18 23:39 05/14/18 23:40 05/15/18 02:40 Temperature 97.4 F L 97.2 F L Pulse Rate 63 58 L Respiratory Rate 16 16 Blood Pressure 143/92 H 133/83 Pulse Oximetry 96 96 97 05/15/18 02:41 05/15/18 04:00 05/15/18 08:18 Temperature 97 F L 97.9 F Pulse Rate 51 L 69 Respiratory Rate 17 21 Blood Pressure 126/66 133/76 Pulse Oximetry 97 96 93 L Intake & Output 05/14/18 05/15/18 05/15/18 18:59 06:59 18:59 Intake Total 2300 / 2300 580 / 580 Output Total 0 / 0 650 / 650 Balance 2300 / 2300 -70 / -70 Weight 92.9 kg Intake: IV 200 / 200 100 / 100 Maxipime Inj 2,000 MG In NS Inj 200 / 200 100 / 100 100 ML @ 200 mls/hr IV.SIG Q8H [facility] Rx#:[id number] Oral 1280 / 1280 480 / 480 Oral Supplement 820 / 820 Output: Urine 650 / 650 Stool 0 / 0 Other: Date of Last Bowel Movement 05/15/18 # Bowel Movements 2 Narrative: GENERAL: NAD SKIN: Warm and dry. HEAD: Atraumatic. Normocephalic. EYES: Pupils equal and round. No scleral icterus. No injection or drainage. ENT: No nasal bleeding or discharge. Mucous membranes pink and moist. NECK: Trachea midline. No JVD. CARDIOVASCULAR: Regular rate and rhythm. RESPIRATORY: No accessory muscle use. Clear to auscultation. Breath sounds equal bilaterally. GASTROINTESTINAL: Abdomen soft, non-tender, nondistended. Hepatic and splenic margins not palpable. MUSCULOSKELETAL: Extremities without clubbing, cyanosis, or edema. No obvious deformities. NEUROLOGICAL: Awake and alert. No obvious cranial nerve deficits. Motor grossly within normal limits. Five out of 5 muscle strength in the arms and legs. Normal speech. PSYCHIATRIC: Appropriate mood and affect; insight and judgment normal. Results - Labs CBC & Chem 7: 05/15/18 06:09 05/14/18 04:30 Laboratory Results - last 24 hr 05/15/18 06:09 WBC 9.0 RBC 4.12 L Hgb 11.3 L Hct 35.1 L MCV 85.2 MCH 27.4 MCHC 32.2 RDW 15.3 Plt Count 217 MPV 8.2 Neut % (Auto) 83.6 H Lymph % (Auto) 12.6 [place] % (Auto) 3.6 Eos % (Auto) 0.0 Baso % (Auto) 0.2 Neut # (Auto) 7.5 Lymph # (Auto) 1.1 [place] # (Auto) 0.3 Eos # (Auto) 0.0 Baso # (Auto) 0.0 WBC Differential . Differential Comment Auto diff final Microbiology 05/13/18 08:20 Sputum - Expectorated Sputum Gram Stain - Final 05/13/18 08:20 Sputum - Expectorated Sputum Sputum Culture - Preliminary Heavy growth normal respiratory selina at 24 hours 05/13/18 08:00 Blood - Peripheral Aerobic Blood Culture - Preliminary No growth in 1 day 05/13/18 08:00 Blood - Peripheral Anaerobic Blood Culture - Preliminary No growth in 1 day 05/13/18 07:50 Blood - Peripheral Aerobic Blood Culture - Preliminary No growth in 1 day 05/13/18 07:50 Blood - Peripheral Anaerobic Blood Culture - Preliminary No growth in 1 day - Procedures none Assessment and Plan - Assessment (1) Sepsis Code(s): A41.9 - Sepsis, unspecified organism Status: Acute (2) HCAP (healthcare-associated pneumonia) Code(s): J18.9 - Pneumonia, unspecified organism Status: Acute (3) Sepsis Code(s): A41.9 - Sepsis, unspecified organism Status: Acute - Plan 37-year-old man with Severe sepsis: Resolved Secondary to HCAP Currently on IV cefepime pending culture report Hospital acquired community pneumonia CTA with finding of right pulmonary infiltrate and negative for PE Influenza a and B antigen negative Status post azithromycin and cefepime IV x1 in ED, continue with IV cefepime 2 g every 8 hour Sputum culture and blood culture negative DuoNeb, Mucinex, guaifenesin On Solu-Medrol 20 mg IV every 8 hours times; Will Taper down and switch to Prednisone Tobacco abuse Tobacco counseling cessation provided Continue nicotine patch History of seizure disorder, PTSD, hypertension Continue outpatient medications Chronic pain syndrome On methadone 140 mg daily DVT prophylaxis: Bilateral SCDs (3) Sepsis Qualifiers: Sepsis type: sepsis due to unspecified organism Qualified Code(s): A41.9 - Sepsis, unspecified organism
--- NOTE | 2018-05-15 10:31 | P.DS ---
Date of admission: 05/13/18 10:58 Primary care physician: No Primary Care Physician Brief History from admission: 37-year-old male with a history of seizure disorder, PTSD, presented to the ED for evaluation of 3-day history of cough production, subjective fevers, upper respiratory symptoms and generalized weakness. CTA chest revealed right pulmonary consolidation without any evidence of PE. Abnormal lab include elevated WBC and lactic acid. Patient also endorses shortness of breath along with chest pain associated with deep inspiration and coughing. DS: Diagnosis - Discharge Diagnosis (1) Sepsis Status: Acute (2) HCAP (healthcare-associated pneumonia) Status: Acute (3) Sepsis Status: Acute DS: Summary Hospital Course: While in hospital, patient was treated for: Severe sepsis: Resolved Secondary to HCAP Treated with IV cefepime ; will switch to PO Levaquin Hospital acquired community pneumonia CTA with finding of right pulmonary infiltrate and negative for PE Influenza a and B antigen negative Status post azithromycin and cefepime IV x1 in ED, Treated with IV cefepime 2 g every 8 hour Sputum culture and blood culture negative DuoNeb, Mucinex, guaifenesin On Solu-Medrol 20 mg IV every 8 hours times; Will Taper down and switch to Prednisone Tobacco abuse Tobacco counseling cessation provided Continue nicotine patch History of seizure disorder, PTSD, hypertension Outpatient medications were resumed Chronic pain syndrome Methadone 140 mg daily was resumed DVT prophylaxis: Bilateral SCDs - Time Spent with Patient Total time spent providing and/or coordinating discharge services: Less than 30 minutes - Quality: VTE Deep Vein Thrombosis/Pulmonary Embolism Present on Admission: No Exam Vital signs: Vital Signs 05/14/18 13:15 05/14/18 16:00 05/14/18 20:00 Temperature 97.4 F L 97.7 F 97.6 F Pulse Rate 79 76 73 Respiratory Rate 16 18 16 Blood Pressure 104/57 L 104/56 L 133/74 Pulse Oximetry 94 L 96 96 05/14/18 23:39 05/14/18 23:40 05/15/18 02:40 Temperature 97.4 F L 97.2 F L Pulse Rate 63 58 L Respiratory Rate 16 16 Blood Pressure 143/92 H 133/83 Pulse Oximetry 96 96 97 05/15/18 02:41 05/15/18 04:00 05/15/18 08:18 Temperature 97 F L 97.9 F Pulse Rate 51 L 69 Respiratory Rate 17 21 Blood Pressure 126/66 133/76 Pulse Oximetry 97 96 93 L Intake & Output 05/14/18 05/15/18 05/15/18 18:59 06:59 18:59 Intake Total 2300 / 2300 580 / 580 Output Total 0 / 0 650 / 650 Balance 2300 / 2300 -70 / -70 Weight 92.9 kg Intake: IV 200 / 200 100 / 100 Maxipime Inj 2,000 MG In NS Inj 200 / 200 100 / 100 100 ML @ 200 mls/hr IV.SIG Q8H [place] Rx#:[id number] Oral 1280 / 1280 480 / 480 Oral Supplement 820 / 820 Output: Urine 650 / 650 Stool 0 / 0 Other: Date of Last Bowel Movement 05/15/18 # Bowel Movements 2 Narrative: GENERAL: NAD SKIN: Warm and dry. HEAD: Atraumatic. Normocephalic. EYES: Pupils equal and round. No scleral icterus. No injection or drainage. ENT: No nasal bleeding or discharge. Mucous membranes pink and moist. NECK: Trachea midline. No JVD. CARDIOVASCULAR: Regular rate and rhythm. RESPIRATORY: No accessory muscle use. Clear to auscultation. Breath sounds equal bilaterally. GASTROINTESTINAL: Abdomen soft, non-tender, nondistended. Hepatic and splenic margins not palpable. MUSCULOSKELETAL: Extremities without clubbing, cyanosis, or edema. No obvious deformities. NEUROLOGICAL: Awake and alert. No obvious cranial nerve deficits. Motor grossly within normal limits. Five out of 5 muscle strength in the arms and legs. Normal speech. PSYCHIATRIC: Appropriate mood and affect; insight and judgment normal. Results Procedures completed during hospitalization: none Labs on day of discharge: Labs from last 24 hours 05/15/18 06:09 WBC 9.0 RBC 4.12 L Hgb 11.3 L Hct 35.1 L MCV 85.2 MCH 27.4 MCHC 32.2 RDW 15.3 Plt Count 217 MPV 8.2 Neut % (Auto) 83.6 H Lymph % (Auto) 12.6 [place] % (Auto) 3.6 Eos % (Auto) 0.0 Baso % (Auto) 0.2 Neut # (Auto) 7.5 Lymph # (Auto) 1.1 [place] # (Auto) 0.3 Eos # (Auto) 0.0 Baso # (Auto) 0.0 WBC Differential . Differential Comment Auto diff final Preliminary micro results at discharge 05/13/18 08:20 Sputum Culture - Preliminary Sputum - Expectorated Sputum Heavy growth normal respiratory selina at 24 hours 05/13/18 08:00 Aerobic Blood Culture - Preliminary Blood - Peripheral No growth in 1 day Anaerobic Blood Culture - Preliminary No growth in 1 day 05/13/18 07:50 Aerobic Blood Culture - Preliminary Blood - Peripheral No growth in 1 day Anaerobic Blood Culture - Preliminary No growth in 1 day - Impressions ITS Impressions Chest X-Ray 05/13/18 08:15 CONCLUSION: No acute cardiopulmonary disease. Chest CTA 05/13/18 08:45 CONCLUSION: 1. Consolidation in the right lower lobe with small milder area of consolidation in the left lower lobe. The findings are characteristic of pneumonia. 2. No evidence of pulmonary emboli. Discharge Plan - Discharge Disposition Patient Disposition: 01 Discharge Home - Discharge Condition Condition: Stable - Discharge Order Discharge Orders: Discharge Order (Routine); Ordered 05/15/18 Ordered By: Adriel Junior - Physicians Team Primary Care Provider: Primary Care Erin Castano Attending Provider: Adriel Junior
[2018-05-15 12:00] VITALS: BP 129/75; PULSE 72; RESP 22
[2018-05-16] MEDS ORDERED: predniSONE 20 MG Tablet PO SCH (09:00)
== END 2018-05-15 13:07 | disposition home or self-care (01) ==
LOC: NEPE 07:44 → NEDA 10:58 → N04 15:20
PROVIDERS: ADMIT Hospitalist; ATTEND Hospitalist